=== PATIENT | female | born 1985 | race Caucasian/White ===

== ENCOUNTER 2016-11-24 13:40 | Emergency (ER) | payer OTHER ==
[~2016-11-24 13:40] MED LIST: Motrin PO; PRENTAB74 PO; tylenol PO
[2016-11-24 16:10] LABS: CONTROL LINE UCG INT CTR LINE PRESENT
[2016-11-24] MEDS ORDERED: ACETAMINOPHEN 325 MG TAB As Ordered ONE (17:29)
[2016-11-24 18:11] LABS: MEAN CORPUSCULAR HEMOGLOBIN 31.7 pg (27.0-33.0); MEAN CORPUSCULAR HGB CONC 35.2 g/dl (32.0-36.5); RED CELL DISTRIBUTION WIDTH 12.2 % (11.5-14.5); WHITE BLOOD COUNT 8.6 K/mm3 (4.0-10.0)
--- NOTE | 2016-11-24 18:31 | REP ---
Chest x-ray: Single PA view: History: Cough. Abdominal shielding was utilized this patient. Comparison chest x-ray: 05/26/2016. Findings: The lungs are symmetrically aerated and free of infiltrate. There is some tenting of the left hemidiaphragm. The infiltrate noted on the comparison chest x-ray has resolved. Heart size is normal. Pulmonary vasculature is not increased. Impression: Minimal fibrosis along the left hemidiaphragm. No active disease. Signed by Dandre Morales MD 11/24/2016 07:47 P
[2016-11-24 18:39] LABS: ANION GAP 8 MEQ/L (8-16); BLOOD UREA NITROGEN 12 MG/DL (7-18); CALCIUM LEVEL 8.9 MG/DL (8.5-10.1); CARBON DIOXIDE LEVEL 26 MEQ/L (21-32); CHLORIDE LEVEL 108 MEQ/L (98-107); CREATININE FOR GFR 0.64 MG/DL (0.55-1.02); GLOMERULAR FILTRATION RATE > 60.0 (>60); GLUCOSE, FASTING 94 MG/DL (70-105); HCG, SERUM QUANTITATIVE 2933 MIU/ML; POTASSIUM SERUM 3.7 MEQ/L (3.5-5.1); SODIUM LEVEL 142 MEQ/L (136-145)
--- NOTE | 2016-11-24 18:40 | REPUSA ---
Findings: There is intrauterine gestational sac noted which measures 7.5 x 4.1 x 7.7 mm. The mean sac size is 6.3 mm. Gestational age is 5 weeks 2 days. There is yolk sac noted. There is no definite erik e seen at this time. Recommend follow-up. There is trace free fluid in the cul-de-sac. Right ovary is 2.7 x 1.9 x 2.1 cm. The RI is 0.6. Left ovary 2.7 x 2.3 x 2.5 cm. the RI 0.59. Impression: 1. Intrauterine gestational sac present, corresponding to gestational age of 5 weeks 2 days. Yolk s ac is noted. At This time, no definite pole is seen. Recommend clinical correlation, correla tion beta-hCG and follow-up study as indicated.
--- NOTE | 2016-11-24 19:14 | EDDOCDS ---
Nurse's Notes [facility] Name: Tara Grijalva Age: 31 yrs Sex: Female : 1985 Arrival Date: 11/24/2016 Time: 13:40 Bed TR7 Private MD: No Pcp Diagnosis: Strain of muscle and tendon of front wall of thorax; related conditions, unspecified, first trimester;Acute bronchitis Presentation: 11/24 13:52 Presenting complaint: Patient states: c/o cough and congestion for two weeks. reports ead abdominal pain with cough, denies n/v. Risk factors: the patient reports no vaginal bleeding. Adult Sepsis Screening: The patient does not have new or worsening altered mentation. Patient's respiratory rate is less than 22. Adult Sepsis Screening: Systolic blood pressure is greater than 100. Patient has a qSOFA score of 0- Negative Sepsis Screen. Suicide/Homicide risk assessment- the patient denies having any suicidal and/or homicidal ideations and does not present with any other emotional, behavioral or mental health complaints. Status: Patient is not a guest service host or dependent. Transition of care: patient was not received from another setting of care. 13:52 Acuity: PREETI Level 3 ead 13:52 Method Of Arrival: Walkin/Carried/Asstd ead Triage Assessment: 13:54 General: Appears in no apparent distress, comfortable, well nourished, well groomed, ead Behavior is appropriate for age, cooperative. Pain: Location: chest Pain currently is 5 out of 10 on a pain scale. Aggravated by coughing and taking deep breaths. HIV screening NA for this visit Offered previously. Neurological: No deficits noted. Respiratory: Airway is patent Respiratory effort is even, unlabored, Reports cough that is productive. GI: Denies nausea, vomiting, pain. Derm: Skin is pink, warm & dry. 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 none - PMHx: none; - PSHx: none; - Social history: Smoking status: Patient states former smoker of tobacco. No barriers to communication noted, The patient speaks fluent [place], Speaks appropriately for age. - Family history: Not pertinent. - : The pt / caregiver states he / she is not on anticoagulants. Home medication list is obtained from the patient. - Exposure Risk Screening:: None identified. Screenin:06 Screening information is obtained from the patient. Fall risk: No risks identified. ms18 Assistance ADL's: requires no assistance with activities of daily living. Abuse/DV Screen: The patient / caregiver reports he/she is: not in a situation that causes fear, pain or injury. Nutritional screening: No deficits noted. Advance Directives: There is no living will. home support is adequate. Assessment: 19:06 General: Appears in no apparent distress, comfortable, Behavior is appropriate for age, ms18 cooperative. Pain: Denies pain. Neurological: Level of Consciousness is awake, alert, obeys commands, Oriented to person, place, time. Respiratory: Airway is patent Respiratory effort is even, unlabored. GI: Abdomen is flat, Bowel sounds present X 4 quads. Abd is soft X 4 quads. Derm: Skin is pink, warm & dry. normal. Vital Signs: 13:42 BP 144 / 72; Pulse 70; Resp 18 S; Temp 96.4(O); Pulse Ox 100% on R/A; Weight 70.31 kg gr2 (R); Height 5 ft. 5 in. (165.10 cm) (R); Pain 4/10; 15:46 BP 117 / 60; Pulse 60; Resp 20; Temp 99.1; Pulse Ox 100% on R/A; Pain 7/10; ar3 18:51 BP 119 / 81; Pulse 65; Resp 16; Temp 100.9(TE); Pulse Ox 98% on R/A; Pain 5/10; bnb 13:42 Body Mass Index 25.79 (70.31 kg, 165.10 cm) gr2 Vitals: 13:42 Log In Time: November 24, 2016 at 13:42. gr2 ED Course: 13:41 Patient visited by Serene Garcia. gr2 13:41 Patient moved to Waiting gr2 13:42 No Pcp is Private Physician. gr2 13:45 Patient visited by Serene Garcia. gr2 13:45 Patient visited by Seerne Garcia. gr2 13:45 Patient moved to Pre RCE gr2 13:53 Triage Initiated ead 15:53 UCG- In Lab Sent. ar3 15:54 Urine Culture Sent. ar3 15:54 UA Sent. ar3 17:06 Patient moved to Triage 3 ms18 17:08 Patient visited by Caitlin Hernandez RN. ms18 17:16 Dustin Medley PA is PHCP. mo1 17:16 Mechelle De La Garza MD is Attending Physician. mo1 17:21 Patient visited by Dustin Medley PA. mo1 17:39 BMP Sent. ms18 17:39 Complete Blood Count Sent. ms18 17:39 Hcg, Serum Quantitative Sent. ms18 17:39 Rh Only Sent. ms18 17:40 Patient moved to TR4 ms18 17:40 [facility] Payment Agreement was scanned into [employer] and attached to record. gjb 17:52 Patient moved to Ultrasound br3 18:11 Patient moved to TR4 br3 18:41 Patient moved to TR2 ms18 18:48 Patient moved to PR1 / 25 jc4 18:52 Patient visited by Jaja Bolden PCA. bnb 18:58 Chest, 1 View Returned. EDMS 18:58 US 1st trimester Returned. EDMS 19:06 Patient moved to TR7 bnb 19:06 The patient / caregiver is instructed regarding the plan of care and ED course. ms18 Accompanied by Significant Other. Property sent home with patient. :Personal belongings accompany Pt. 19:06 No IV's were initiated during this patient's visit. No procedures done that require ms18 assistance. Administered Medications: 17:31 Drug: Acetaminophen 975 mg [acetaminophen 325 mg tablet (3 tabs)] Route: PO; ms18 19:05 Follow up: Response: No Adverse Reaction ms18 Order Results: Lab Order: UA; SPEC'M 11/24/16 15:53 Test: APPEARANCE, URINE; Value: CLEAR; Range: CLEAR; Status: F Test: COLOR, URINE; Value: YELLOW; Range: YELLOW; Status: F Test: PH,URINE; Value: 6.0; Range: 5.0-9.0; Units: UNITS; Status: F Test: SPECIFIC GRAVITY URINE AUTO; Value: 1.023; Range: 1.002-1.035; Status: F Test: PROTEIN, URINE AUTO; Value: NEGATIVE; Range: NEGATIVE; Units: mg/dL; Status: F Test: GLUCOSE, URINE (UA) AUTO; Value: NEGATIVE; Range: NEGATIVE; Units: mg/dL; Status: F Test: KETONE, URINE AUTO; Value: 1+; Range: NEGATIVE; Abnormal: Above high normal; Units: mg/dL; Status: F Test: UROBILINOGEN, URINE AUTO; Value: 0.2; Range: 0.0-2.0; Units: mg/dL; Status: F Test: BILIRUBIN, URINE AUTO; Value: NEGATIVE; Range: NEGATIVE; Status: F Test: NITRITE, URINE AUTO; Value: NEGATIVE; Range: NEGATIVE; Status: F Test: LEUKOCYTE ESTERASE, URINE AUTO; Value: NEGATIVE; Range: NEGATIVE; Status: F Test: BLOOD, URINE BLOOD; Value: NEGATIVE; Range: NEGATIVE; Status: F Test: SPERM, URINE AUTO; Range: NONE; Status: I Test: WBC, URINE AUTO; Value: 1; Range: 0-3; Units: /HPF; Status: F Test: RBC, URINE AUTO; Value: 2; Range: 0-3; Units: /HPF; Status: F Test: BACTERIA, URINE AUTO; Value: 2+; Range: NEGATIVE; Abnormal: Above high normal; Status: F Test: SQUAMOUS EPITHELIAL CELL UR AU; Value: 1; Range: 0-6; Units: /HPF; Status: F Test: MUCUS, URINE; Value: SMALL; Range: NEGATIVE; Status: F Test: HYALINE CAST, URINE AUTO; Value: 0; Range: 0-1; Units: /LPF; Status: F Lab Order: UCG- In Lab; SPEC'M 11/24/16 15:53 Test: URINE PREG TEST; Value: POSITIVE; Range: NEGATIVE; Abnormal: Abnormal; Status: F Lab Order: Complete Blood Count; SPEC'M 11/24/16 17:40 Test: WHITE BLOOD COUNT; Value: 8.6; Range: 4.0-10.0; Units: K/mm3; Status: F Test: RED BLOOD COUNT; Value: 4.05; Range: 4.00-5.40; Units: M/mm3; Status: F Test: HEMOGLOBIN; Value: 12.8; Range: 12.0-16.0; Units: g/dl; Status: F Test: HEMATOCRIT; Value: 36.4; Range: 36.0-47.0; Units: %; Status: F Test: MEAN CORPUSCULAR VOLUME; Value: 90.0; Range: 80.0-96.0; Units: fl; Status: F Test: MEAN CORPUSCULAR HEMOGLOBIN; Value: 31.7; Range: 27.0-33.0; Units: pg; Status: F Test: MEAN CORPUSCULAR HGB CONC; Value: 35.2; Range: 32.0-36.5; Units: g/dl; Status: F Test: RED CELL DISTRIBUTION WIDTH; Value: 12.2; Range: 11.5-14.5; Units: %; Status: F Test: PLATELET COUNT, AUTOMATED; Value: 230; Range: 150-450; Units: k/mm3; Status: F Lab Order: Hcg, Serum Quantitative; SPEC11/24/16 17:40 Test: HCG, SERUM QUANTITATIVE; Value: 2933; Units: MIU/ML; Status: F Test Note: ; GESTATIONAL AGE APPROXIMATE HCG RANGE (MIU/ML) 0.2-1 WEEK 5-50 1-2 WEEKS 50-500 2-3 WEEKS 100-5,000 3-4 WEEKS 500-10,000 4-5 WEEKS 1,000-50,000 5-6 WEEKS 10,000-100,000 6-8 WEEKS 15,000-200,000 2-3 MONTHS 10,000-100,000 NON FEMALES LESS THAN 3.0 Patient samples may contain human heterophilic antibodies that could react with immunoassays to give falsely elevated or depressed results. This assay has been designed to minimize interference from heterophilic antibodies. Elevated hCG levels have also been associated with trophoblastic disease and nontrophoblastic neoplasms. The possibility of having these diseases should be considered before a diagnosis of is made. This test is not intended for use as a surrogate marker for aiding in the diagnosis or monitoring the treatment of cancer patients. [employer] methodology. Lab Order: Rh Only; SPEC11/24/16 17:40 Test: RH; Value: NEGATIVE; Status: F Lab Order: BMP; SPEC11/24/16 17:40 Test: GLUCOSE, FASTING; Value: 94; Range: 70-105; Units: MG/DL; Status: F Test: BLOOD UREA NITROGEN; Value: 12; Range: 7-18; Units: MG/DL; Status: F Test: CREATININE FOR GFR; Value: 0.64; Range: 0.55-1.02; Units: MG/DL; Status: F Test: GLOMERULAR FILTRATION RATE; Value: > 60.0; Range: >60; Status: F Test: SODIUM LEVEL; Value: 142; Range: 136-145; Units: MEQ/L; Status: F Test: POTASSIUM SERUM; Value: 3.7; Range: 3.5-5.1; Units: MEQ/L; Status: F Test: CHLORIDE LEVEL; Value: 108; Range: 98-107; Abnormal: Above high normal; Units: MEQ/L; Status: F Test: CARBON DIOXIDE LEVEL; Value: 26; Range: 21-32; Units: MEQ/L; Status: F Test: ANION GAP; Value: 8; Range: 8-16; Units: MEQ/L; Status: F Test: CALCIUM LEVEL; Value: 8.9; Range: 8.5-10.1; Units: MG/DL; Status: F Test Note: ; Units are mL/min/1.73 m2 Chronic Kidney Disease Staging per NKF: Stage I & II GFR >=60 Normal to Mildly Decreased Stage III GFR 30-59 Moderately Decreased Stage IV GFR 15-29 Severely Decreased Stage V GFR <15 Very Little GFR Left ESRD GFR <15 on ANTHROPOLOGIST PHYSICAL 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 The mean sac size is; 6.3 mm. Gestational age is 5 weeks 2 days. There is yolk sac noted. There is no definite erik; e seen at this time. Recommend follow-up.; ; There is trace free fluid in the cul-de-sac. Right ovary is 2.7 x 1.9 x 2.1 cm. The RI is 0.6.; Left ovary 2.7 x 2.3 x 2.5 cm. the RI 0.59.; Impression:; 1. Intrauterine gestational sac present, corresponding to gestational age of 5 weeks 2 days. Yolk s; ac is noted. At This time, no definite pole is seen. Recommend clinical correlation, correla; tion beta-hCG and follow-up study as indicated.; ; Radiology Order: Chest, 1 View Test: Chest, 1 View REASON FOR EXAMINATION: Cough; Chest x-ray: Single PA view:; ; History: Cough. Abdominal shielding was utilized this patient.; ; Comparison chest x-ray: 05/26/2016.; ; Findings: The lungs are symmetrically aerated and free of infiltrate. There is; some tenting of the left hemidiaphragm. The infiltrate noted on the comparison; chest x-ray has resolved. Heart size is normal. Pulmonary vasculature is not; increased.; ; Impression:; ; Minimal fibrosis along the left hemidiaphragm. No active disease.; ; ; ; ; Unreviewed; Outcome: 19:00 Discharge ordered by Provider. mo1 19:06 Discharge Assessment: Patient awake, alert and oriented x 3. No cognitive and/or ms18 functional deficits noted. Patient verbalized understanding of disposition instructions. patient administered narcotics - no. The following High Risk Discharge criteria are identified: None. Discharged to home ambulatory. Condition: good Condition: stable Condition: improved. Discharge instructions given to patient, Instructed on discharge instructions, follow up and referral plans. medication usage, Demonstrated understanding of instructions, medications, Pt was receptive of discharge instructions/ teaching. Ultrasound Study completed. 19:14 Patient left the ED. ms18 Signatures: Dispatcher [employer] EDMS Gewn Garcia br3 Buffy Mishra, STRATEGIC PLANNING DIRECTOR STRATEGIC PLANNING DIRECTOR ar3 Ashli Díaz RN RN jc4 Serene Garcia gr2 Dustin Medley PA PA mo1 Monica López RN RN ead Smith, Mallory, RN RN ms18 Lorna Pope Brittney, STRATEGIC PLANNING DIRECTOR STRATEGIC PLANNING DIRECTOR bnb Corrections: (The following items were deleted from the chart) 13:45 13:42 RN notified that patient meets Red Flag criteria. gr2 gr2 MTDD
--- NOTE | 2016-11-24 19:14 | EDDOCDS ---
Physician Documentation [facility] Name: Tara Grijalva Age: 31 yrs Sex: Female : 1985 Arrival Date: 11/24/2016 Time: 13:40 Bed TR7 Private MD: No Pcp Disposition: 11/24/16 19:00 Discharged to Home/Self Care. Impression: Strain of muscle and tendon of front wall of thorax, related conditions, unspecified, first trimester, Acute bronchitis. - Condition is Stable. - Discharge Instructions: First Trimester of , Acute Bronchitis, Muscle Strain. - Medication Reconciliation, Local Pharmacy Hours form. - Follow up: Private Physician; When: Call to arrange an appointment; Reason: Recheck today's complaints, Continuance of care. - Problem is new. - Symptoms are unchanged. Historical: - Allergies: no known allergies; - Home Meds: 1. none - PMHx: none; - PSHx: none; - Social history: Smoking status: Patient states former smoker of tobacco. No barriers to communication noted, The patient speaks fluent Romansh, Speaks appropriately for age. - Family history: Not pertinent. - : The pt / caregiver states he / she is not on anticoagulants. Home medication list is obtained from the patient. - Exposure Risk Screening:: None identified. 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 5 in. (165.10 cm) (R); Pain 4/10; 15:46 BP 117 / 60; Pulse 60; Resp 20; Temp 99.1; Pulse Ox 100% on R/A; Pain 7/10; ar3 18:51 BP 119 / 81; Pulse 65; Resp 16; Temp 100.9(TE); Pulse Ox 98% on R/A; Pain 5/10; bnb 13:42 Body Mass Index 25.79 (70.31 kg, 165.10 cm) gr2 MDM: 15:49 UA Ordered. EDMS 15:49 Urine Culture Ordered. EDMS 15:49 UCG- In Lab Ordered. EDMS 17:20 UA Reviewed. mo1 17:21 UCG- In Lab Reviewed. mo1 17:28 Undress patient appropriately for examination ordered. mo1 17:28 Acetaminophen Tablet 975 mg PO once ordered. mo1 17:29 US 1st trimester Ordered. EDMS 17:29 Complete Blood Count Ordered. EDMS 17:29 Hcg, Serum Quantitative Ordered. EDMS 17:29 Rh Only Ordered. EDMS 17:29 BMP Ordered. EDMS 17:29 Chest, 1 View Ordered. EDMS 17:39 Financial registration complete. gjb 17:40 [facility] Payment Agreement was scanned into [employer] and attached to record. gjb 18:14 TRANSVAGINAL US Ordered. EDMS 18:14 DUPLEX SCAN LIMITED (DOPPLER) Ordered. EDMS 18:39 Complete Blood Count Reviewed. mo1 18:39 Rh Only Reviewed. mo1 18:40 BMP Reviewed. mo1 18:40 Hcg, Serum Quantitative Reviewed. mo1 Administered Medications: 17:31 Drug: Acetaminophen 975 mg [acetaminophen 325 mg tablet (3 tabs)] Route: PO; ms18 19:05 Follow up: Response: No Adverse Reaction ms18 Signatures: Dispatcher [employer] EDMS Dustin Medley PA PA mo1 Monica LópezRN RN Caitlin Laird RN RN ms18 Lorna Pope The chart was reviewed and I authenticate all verbal orders and agree with the evaluation and treatment provided.Attachments: 17:40 [facility] Payment Agreement gjb MTDD
--- NOTE | 2016-11-26 20:14 | EDDOCDS ---
Nurse's Notes [facility] Name: Tara Grijalva Age: 31 yrs Sex: Female : 1985 Arrival Date: 11/24/2016 Time: 13:40 Bed TR7 Private MD: No Pcp Diagnosis: Strain of muscle and tendon of front wall of thorax; related conditions, unspecified, first trimester;Acute bronchitis Presentation: 11/24 13:52 Presenting complaint: Patient states: c/o cough and congestion for two weeks. reports ead abdominal pain with cough, denies n/v. Risk factors: the patient reports no vaginal bleeding. Adult Sepsis Screening: The patient does not have new or worsening altered mentation. Patient's respiratory rate is less than 22. Adult Sepsis Screening: Systolic blood pressure is greater than 100. Patient has a qSOFA score of 0- Negative Sepsis Screen. Suicide/Homicide risk assessment- the patient denies having any suicidal and/or homicidal ideations and does not present with any other emotional, behavioral or mental health complaints. Status: Patient is not a academic services coordinator or dependent. Transition of care: patient was not received from another setting of care. 13:52 Acuity: PREETI Level 3 ead 13:52 Method Of Arrival: Walkin/Carried/Asstd ead Triage Assessment: 13:54 General: Appears in no apparent distress, comfortable, well nourished, well groomed, ead Behavior is appropriate for age, cooperative. Pain: Location: chest Pain currently is 5 out of 10 on a pain scale. Aggravated by coughing and taking deep breaths. HIV screening NA for this visit Offered previously. Neurological: No deficits noted. Respiratory: Airway is patent Respiratory effort is even, unlabored, Reports cough that is productive. GI: Denies nausea, vomiting, pain. Derm: Skin is pink, warm & dry. 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 none - PMHx: none; - PSHx: none; - Social history: Smoking status: Patient states former smoker of tobacco. No barriers to communication noted, The patient speaks fluent Hong Konger, Speaks appropriately for age. - Family history: Not pertinent. - : The pt / caregiver states he / she is not on anticoagulants. Home medication list is obtained from the patient. - Exposure Risk Screening:: None identified. Screenin:06 Screening information is obtained from the patient. Fall risk: No risks identified. ms18 Assistance ADL's: requires no assistance with activities of daily living. Abuse/DV Screen: The patient / caregiver reports he/she is: not in a situation that causes fear, pain or injury. Nutritional screening: No deficits noted. Advance Directives: There is no living will. home support is adequate. Assessment: 19:06 General: Appears in no apparent distress, comfortable, Behavior is appropriate for age, ms18 cooperative. Pain: Denies pain. Neurological: Level of Consciousness is awake, alert, obeys commands, Oriented to person, place, time. Respiratory: Airway is patent Respiratory effort is even, unlabored. GI: Abdomen is flat, Bowel sounds present X 4 quads. Abd is soft X 4 quads. Derm: Skin is pink, warm & dry. normal. Vital Signs: 13:42 BP 144 / 72; Pulse 70; Resp 18 S; Temp 96.4(O); Pulse Ox 100% on R/A; Weight 70.31 kg gr2 (R); Height 5 ft. 5 in. (165.10 cm) (R); Pain 4/10; 15:46 BP 117 / 60; Pulse 60; Resp 20; Temp 99.1; Pulse Ox 100% on R/A; Pain 7/10; ar3 18:51 BP 119 / 81; Pulse 65; Resp 16; Temp 100.9(TE); Pulse Ox 98% on R/A; Pain 5/10; bnb 13:42 Body Mass Index 25.79 (70.31 kg, 165.10 cm) gr2 Vitals: 13:42 Log In Time: November 24, 2016 at 13:42. gr2 ED Course: 13:41 Patient visited by Serene Garcia. gr2 13:41 Patient moved to Waiting gr2 13:42 No Pcp is Private Physician. gr2 13:45 Patient visited by Serene Garcia. gr2 13:45 Patient visited by Serene Garcia. gr2 13:45 Patient moved to Pre RCE gr2 13:53 Triage Initiated ead 15:53 UCG- In Lab Sent. ar3 15:54 Urine Culture Sent. ar3 15:54 UA Sent. ar3 17:06 Patient moved to Triage 3 ms18 17:08 Patient visited by Caitlin Hernandez RN. ms18 17:16 Dustin Medley PA is PHCP. mo1 17:16 Mechelle De La Garza MD is Attending Physician. mo1 17:21 Patient visited by Dustin Medley PA. mo1 17:39 BMP Sent. ms18 17:39 Complete Blood Count Sent. ms18 17:39 Hcg, Serum Quantitative Sent. ms18 17:39 Rh Only Sent. ms18 17:40 Patient moved to TR4 ms18 17:40 [facility] [place] into [employer] and attached to record. gjb 17:52 Patient moved to Ultrasound br3 18:11 Patient moved to TR4 br3 18:41 Patient moved to TR2 ms18 18:48 Patient moved to PR1 / 25 jc4 18:52 Patient visited by Jaja Bolden PCA. bnb 18:58 Chest, 1 View Returned. EDMS 18:58 US 1st trimester Returned. EDMS 19:06 Patient moved to TR7 bnb 19:06 The patient / caregiver is instructed regarding the plan of care and ED course. ms18 Accompanied by Significant Other. Property sent home with patient. :Personal belongings accompany Pt. 19:06 No IV's were initiated during this patient's visit. No procedures done that require ms18 assistance. 11/25 09:18 T-Sheet-- Draft Copy was scanned into [employer] and attached to record. gb 09:18 Radiology Report was scanned into [employer] and attached to record. gb Administered Medications: 11/24 17:31 Drug: Acetaminophen 975 mg [acetaminophen 325 mg tablet (3 tabs)] Route: PO; ms18 19:05 Follow up: Response: No Adverse Reaction ms18 Order Results: Lab Order: UA; SPEC'M 11/24/16 15:53 Test: APPEARANCE, URINE; Value: CLEAR; Range: CLEAR; Status: F Test: COLOR, URINE; Value: YELLOW; Range: YELLOW; Status: F Test: PH,URINE; Value: 6.0; Range: 5.0-9.0; Units: UNITS; Status: F Test: SPECIFIC GRAVITY URINE AUTO; Value: 1.023; Range: 1.002-1.035; Status: F Test: PROTEIN, URINE AUTO; Value: NEGATIVE; Range: NEGATIVE; Units: mg/dL; Status: F Test: GLUCOSE, URINE (UA) AUTO; Value: NEGATIVE; Range: NEGATIVE; Units: mg/dL; Status: F Test: KETONE, URINE AUTO; Value: 1+; Range: NEGATIVE; Abnormal: Above high normal; Units: mg/dL; Status: F Test: UROBILINOGEN, URINE AUTO; Value: 0.2; Range: 0.0-2.0; Units: mg/dL; Status: F Test: BILIRUBIN, URINE AUTO; Value: NEGATIVE; Range: NEGATIVE; Status: F Test: NITRITE, URINE AUTO; Value: NEGATIVE; Range: NEGATIVE; Status: F Test: LEUKOCYTE ESTERASE, URINE AUTO; Value: NEGATIVE; Range: NEGATIVE; Status: F Test: BLOOD, URINE BLOOD; Value: NEGATIVE; Range: NEGATIVE; Status: F Test: SPERM, URINE AUTO; Range: NONE; Status: I Test: WBC, URINE AUTO; Value: 1; Range: 0-3; Units: /HPF; Status: F Test: RBC, URINE AUTO; Value: 2; Range: 0-3; Units: /HPF; Status: F Test: BACTERIA, URINE AUTO; Value: 2+; Range: NEGATIVE; Abnormal: Above high normal; Status: F Test: SQUAMOUS EPITHELIAL CELL UR AU; Value: 1; Range: 0-6; Units: /HPF; Status: F Test: MUCUS, URINE; Value: SMALL; Range: NEGATIVE; Status: F Test: HYALINE CAST, URINE AUTO; Value: 0; Range: 0-1; Units: /LPF; Status: F Lab Order: Urine Culture; SPEC'M 11/24/16 15:53 Test: URINE CULTURE; Value: ORGANISM 1: KLEBSIELLA PNEUMONIAE; Status: F Test: URINE CULTURE; Value: KLEBSIELLA PNEUMONIAE; Status: F Test: URINE CULTURE; Value: COLONY COUNT CFU/ml >100,000; Status: F Test: URINE CULTURE; Value: GRAM NEG SENSI - VITEK 80; Status: F Test: URINE CULTURE; Value: Method: VIT2; Status: F Test: URINE CULTURE; Value: EXTD BRD SPCTRM BETA LACTAMASE -; Status: F Test: URINE CULTURE; Value: TRIMETHOPRIM/SULFAMETHOXAZOLE <=20 S; Status: F Test: URINE CULTURE; Value: AMPICILLIN >=32 R; Status: F Test: URINE CULTURE; Value: GENTAMICIN <=1 S; Status: F Test: URINE CULTURE; Value: NITROFURANTOIN 32 S; Status: F Test: URINE CULTURE; Value: CEFAZOLIN <=4 S; Status: F Test: URINE CULTURE; Value: LEVOFLOXACIN <=0.12 S; Status: F Test: URINE CULTURE; Value: TOBRAMYCIN <=1 S; Status: F Test: URINE CULTURE; Value: CEFTRIAXONE <=1 S; Status: F Test: URINE CULTURE; Value: CEFTAZIDIME <=1 S; Status: F Test: URINE CULTURE; Value: AMPICILLIN/SULBACTAM 16 I; Status: F Test: URINE CULTURE; Value: PIPERACILLIN/TAZOBACTAM <=4 S; Status: F Test: URINE CULTURE; Value: AZTREONAM <=1 S; Status: F Test: URINE CULTURE; Value: ERTAPENEM <=0.5 S; Status: F Test: URINE CULTURE; Value: MEROPENEM <=0.25 S; Status: F Test: URINE CULTURE; Value: TIGECYCLINE <=0.5 S; Status: F Test: URINE CULTURE; Value: CEFEPIME <=1 S; Status: F Lab Order: UCG- In Lab; SPEC'M 11/24/16 15:53 Test: URINE PREG TEST; Value: POSITIVE; Range: NEGATIVE; Abnormal: Abnormal; Status: F Lab Order: Complete Blood Count; SPEC'M 11/24/16 17:40 Test: WHITE BLOOD COUNT; Value: 8.6; Range: 4.0-10.0; Units: K/mm3; Status: F Test: RED BLOOD COUNT; Value: 4.05; Range: 4.00-5.40; Units: M/mm3; Status: F Test: HEMOGLOBIN; Value: 12.8; Range: 12.0-16.0; Units: g/dl; Status: F Test: HEMATOCRIT; Value: 36.4; Range: 36.0-47.0; Units: %; Status: F Test: MEAN CORPUSCULAR VOLUME; Value: 90.0; Range: 80.0-96.0; Units: fl; Status: F Test: MEAN CORPUSCULAR HEMOGLOBIN; Value: 31.7; Range: 27.0-33.0; Units: pg; Status: F Test: MEAN CORPUSCULAR HGB CONC; Value: 35.2; Range: 32.0-36.5; Units: g/dl; Status: F Test: RED CELL DISTRIBUTION WIDTH; Value: 12.2; Range: 11.5-14.5; Units: %; Status: F Test: PLATELET COUNT, AUTOMATED; Value: 230; Range: 150-450; Units: k/mm3; Status: F Lab Order: Hcg, Serum Quantitative; SPEC'11/24/16 17:40 Test: HCG, SERUM QUANTITATIVE; Value: 2933; Units: MIU/ML; Status: F Test Note: ; GESTATIONAL AGE APPROXIMATE HCG RANGE (MIU/ML) 0.2-1 WEEK 5-50 1-2 WEEKS 50-500 2-3 WEEKS 100-5,000 3-4 WEEKS 500-10,000 4-5 WEEKS 1,000-50,000 5-6 WEEKS 10,000-100,000 6-8 WEEKS 15,000-200,000 2-3 MONTHS 10,000-100,000 NON FEMALES LESS THAN 3.0 Patient samples may contain human heterophilic antibodies that could react with immunoassays to give falsely elevated or depressed results. This assay has been designed to minimize interference from heterophilic antibodies. Elevated hCG levels have also been associated with trophoblastic disease and nontrophoblastic neoplasms. The possibility of having these diseases should be considered before a diagnosis of is made. This test is not intended for use as a surrogate marker for aiding in the diagnosis or monitoring the treatment of cancer patients. Siemens Dissolve methodology. Lab Order: Rh Only; SPEC'11/24/16 17:40 Test: RH; Value: NEGATIVE; Status: F Lab Order: BMP; SPEC'11/24/16 17:40 Test: GLUCOSE, FASTING; Value: 94; Range: 70-105; Units: MG/DL; Status: F Test: BLOOD UREA NITROGEN; Value: 12; Range: 7-18; Units: MG/DL; Status: F Test: CREATININE FOR GFR; Value: 0.64; Range: 0.55-1.02; Units: MG/DL; Status: F Test: GLOMERULAR FILTRATION RATE; Value: > 60.0; Range: >60; Status: F Test: SODIUM LEVEL; Value: 142; Range: 136-145; Units: MEQ/L; Status: F Test: POTASSIUM SERUM; Value: 3.7; Range: 3.5-5.1; Units: MEQ/L; Status: F Test: CHLORIDE LEVEL; Value: 108; Range: 98-107; Abnormal: Above high normal; Units: MEQ/L; Status: F Test: CARBON DIOXIDE LEVEL; Value: 26; Range: 21-32; Units: MEQ/L; Status: F Test: ANION GAP; Value: 8; Range: 8-16; Units: MEQ/L; Status: F Test: CALCIUM LEVEL; Value: 8.9; Range: 8.5-10.1; Units: MG/DL; Status: F Test Note: ; Units are mL/min/1.73 m2 Chronic Kidney Disease Staging per NKF: Stage I & II GFR >=60 Normal to Mildly Decreased Stage III GFR 30-59 Moderately Decreased Stage IV GFR 15-29 Severely Decreased Stage V GFR <15 Very Little GFR Left ESRD GFR <15 on 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 The mean sac size is; 6.3 mm. Gestational age is 5 weeks 2 days. There is yolk sac noted. There is no definite erik; e seen at this time. Recommend follow-up.; ; There is trace free fluid in the cul-de-sac. Right ovary is 2.7 x 1.9 x 2.1 cm. The RI is 0.6.; Left ovary 2.7 x 2.3 x 2.5 cm. the RI 0.59.; Impression:; 1. Intrauterine gestational sac present, corresponding to gestational age of 5 weeks 2 days. Yolk s; ac is noted. At This time, no definite pole is seen. Recommend clinical correlation, correla; tion beta-hCG and follow-up study as indicated.; ; Radiology Order: Chest, 1 View Test: Chest, 1 View REASON FOR EXAMINATION: Cough; Chest x-ray: Single PA view:; ; History: Cough. Abdominal shielding was utilized this patient.; ; Comparison chest x-ray: 05/26/2016.; ; Findings: The lungs are symmetrically aerated and free of infiltrate. There is; some tenting of the left hemidiaphragm. The infiltrate noted on the comparison; chest x-ray has resolved. Heart size is normal. Pulmonary vasculature is not; increased.; ; Impression:; ; Minimal fibrosis along the left hemidiaphragm. No active disease.; ; ; Signed by; Dandre Morales MD 11/24/2016 07:47 P; Outcome: 19:00 Discharge ordered by Provider. mo1 19:06 Discharge Assessment: Patient awake, alert and oriented x 3. No cognitive and/or ms18 functional deficits noted. Patient verbalized understanding of disposition instructions. patient administered narcotics - no. The following High Risk Discharge criteria are identified: None. Discharged to home ambulatory. Condition: good Condition: stable Condition: improved. Discharge instructions given to patient, Instructed on discharge instructions, follow up and referral plans. medication usage, Demonstrated understanding of instructions, medications, Pt was receptive of discharge instructions/ teaching. Ultrasound Study completed. 19:14 Patient left the ED. ms18 Signatures: Dispatcher [employer] EDMS Binta Parks, Reg Reg gb Gwen Garcia br3 Buffy Mishra, BILL CLERK BILL CLERK ar3 Ashli Díaz RN RN jc4 Serene Garcia gr2 Dustin Medley PA PA mo1 Monica López RN RN ead Smith, Mallory, RN RN ms18 Lorna Pope Brittney, BILL CLERK BILL CLERK bnb Corrections: (The following items were deleted from the chart) 13:45 13:42 RN notified that patient meets Red Flag criteria. gr2 gr2 Chart Complete MTDD
--- NOTE | 2016-11-26 20:14 | EDDOCDS ---
Physician Documentation [facility] Name: Tara Grijalva Age: 31 yrs Sex: Female : 1985 Arrival Date: 11/24/2016 Time: 13:40 Bed TR7 Private MD: No Pcp Disposition: 11/24/16 19:00 Discharged to Home/Self Care. Impression: Strain of muscle and tendon of front wall of thorax, related conditions, unspecified, first trimester, Acute bronchitis. - Condition is Stable. - Discharge Instructions: First Trimester of , Acute Bronchitis, Muscle Strain. - Medication Reconciliation, Local Pharmacy Hours form. - Follow up: Private Physician; When: Call to arrange an appointment; Reason: Recheck today's complaints, Continuance of care. - Problem is new. - Symptoms are unchanged. Historical: - Allergies: no known allergies; - Home Meds: 1. none - PMHx: none; - PSHx: none; - Social history: Smoking status: Patient states former smoker of tobacco. No barriers to communication noted, The patient speaks fluent Icelandic, Speaks appropriately for age. - Family history: Not pertinent. - : The pt / caregiver states he / she is not on anticoagulants. Home medication list is obtained from the patient. - Exposure Risk Screening:: None identified. 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 5 in. (165.10 cm) (R); Pain 4/10; 15:46 BP 117 / 60; Pulse 60; Resp 20; Temp 99.1; Pulse Ox 100% on R/A; Pain 7/10; ar3 18:51 BP 119 / 81; Pulse 65; Resp 16; Temp 100.9(TE); Pulse Ox 98% on R/A; Pain 5/10; bnb 13:42 Body Mass Index 25.79 (70.31 kg, 165.10 cm) gr2 MDM: 15:49 UA Ordered. EDMS 15:49 Urine Culture Ordered. EDMS 15:49 UCG- In Lab Ordered. EDMS 17:20 UA Reviewed. mo1 17:21 UCG- In Lab Reviewed. mo1 17:28 Undress patient appropriately for examination ordered. mo1 17:28 Acetaminophen Tablet 975 mg PO once ordered. mo1 17:29 US 1st trimester Ordered. EDMS 17:29 Complete Blood Count Ordered. EDMS 17:29 Hcg, Serum Quantitative Ordered. EDMS 17:29 Rh Only Ordered. EDMS 17:29 BMP Ordered. EDMS 17:29 Chest, 1 View Ordered. EDMS 17:39 Financial registration complete. gjb 17:40 [facility] Payment Agreement was scanned into [employer] and attached to record. gjb 18:14 TRANSVAGINAL US Ordered. EDMS 18:14 DUPLEX SCAN LIMITED (DOPPLER) Ordered. EDMS 18:39 Complete Blood Count Reviewed. mo1 18:39 Rh Only Reviewed. mo1 18:40 BMP Reviewed. mo1 18:40 Hcg, Serum Quantitative Reviewed. mo1 11/25 09:18 T-Sheet-- Draft Copy was scanned into [employer] and attached to record. gb 09:18 Radiology Report was scanned into [employer] and attached to record. gb Administered Medications: 11/24 17:31 Drug: Acetaminophen 975 mg [acetaminophen 325 mg tablet (3 tabs)] Route: PO; ms18 19:05 Follow up: Response: No Adverse Reaction ms18 Signatures: Dispatcher [employer] EDMS Binta Parks, Reg Reg gb Dustin Medley PA PA mo1 Monica LópezRN RN Caitlin Laird RN RN ms18 Lorna Pope The chart was reviewed and I authenticate all verbal orders and agree with the evaluation and treatment provided.Attachments: 17:40 [facility] Payment Agreement gjb 11/25 09:18 T-Sheet-- Draft Copy gb Chart Complete MTDD
--- NOTE | 2016-11-26 20:14 | EDDOCDS ---
Physician Documentation [facility] Name: Tara Grijalva Age: 31 yrs Sex: Female : 1985 Arrival Date: 11/24/2016 Time: 13:40 Bed TR7 Private MD: No Pcp Disposition: 11/24/16 19:00 Discharged to Home/Self Care. Impression: Strain of muscle and tendon of front wall of thorax, related conditions, unspecified, first trimester, Acute bronchitis. - Condition is Stable. - Discharge Instructions: First Trimester of , Acute Bronchitis, Muscle Strain. - Medication Reconciliation, Local Pharmacy Hours form. - Follow up: Private Physician; When: Call to arrange an appointment; Reason: Recheck today's complaints, Continuance of care. - Problem is new. - Symptoms are unchanged. Historical: - Allergies: no known allergies; - Home Meds: 1. none - PMHx: none; - PSHx: none; - Social history: Smoking status: Patient states former smoker of tobacco. No barriers to communication noted, The patient speaks fluent Vietnamese, Speaks appropriately for age. - Family history: Not pertinent. - : The pt / caregiver states he / she is not on anticoagulants. Home medication list is obtained from the patient. - Exposure Risk Screening:: None identified. 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 5 in. (165.10 cm) (R); Pain 4/10; 15:46 BP 117 / 60; Pulse 60; Resp 20; Temp 99.1; Pulse Ox 100% on R/A; Pain 7/10; ar3 18:51 BP 119 / 81; Pulse 65; Resp 16; Temp 100.9(TE); Pulse Ox 98% on R/A; Pain 5/10; bnb 13:42 Body Mass Index 25.79 (70.31 kg, 165.10 cm) gr2 MDM: 15:49 UA Ordered. EDMS 15:49 Urine Culture Ordered. EDMS 15:49 UCG- In Lab Ordered. EDMS 17:20 UA Reviewed. mo1 17:21 UCG- In Lab Reviewed. mo1 17:28 Undress patient appropriately for examination ordered. mo1 17:28 Acetaminophen Tablet 975 mg PO once ordered. mo1 17:29 US 1st trimester Ordered. EDMS 17:29 Complete Blood Count Ordered. EDMS 17:29 Hcg, Serum Quantitative Ordered. EDMS 17:29 Rh Only Ordered. EDMS 17:29 BMP Ordered. EDMS 17:29 Chest, 1 View Ordered. EDMS 17:39 Financial registration complete. gjb 17:40 [facility] Payment Agreement was scanned into [employer] and attached to record. gjb 18:14 TRANSVAGINAL US Ordered. EDMS 18:14 DUPLEX SCAN LIMITED (DOPPLER) Ordered. EDMS 18:39 Complete Blood Count Reviewed. mo1 18:39 Rh Only Reviewed. mo1 18:40 BMP Reviewed. mo1 18:40 Hcg, Serum Quantitative Reviewed. mo1 11/25 09:18 T-Sheet-- Draft Copy was scanned into [employer] and attached to record. gb 09:18 Radiology Report was scanned into [employer] and attached to record. gb Administered Medications: 11/24 17:31 Drug: Acetaminophen 975 mg [acetaminophen 325 mg tablet (3 tabs)] Route: PO; ms18 19:05 Follow up: Response: No Adverse Reaction ms18 Signatures: Dispatcher [employer] EDMS Binta Parks, Reg Reg gb Dustin Medley PA PA mo1 Monica LópezRN RN Caitlin Laird RN RN ms18 Lorna Pope The chart was reviewed and I authenticate all verbal orders and agree with the evaluation and treatment provided.Attachments: 17:40 [facility] Payment Agreement gjb 11/25 09:18 T-Sheet-- Draft Copy gb Chart Complete MTDD
== END 2016-11-24 19:14 | disposition home or self-care (01) ==
LOC: M ED 13:40
DX: O99.89 Other specified diseases and conditions complicating pregnancy, childbirth and the puerperium (principal); J20.9 Acute bronchitis, unspecified; R10.9 Unspecified abdominal pain; Z87.891 Personal history of nicotine dependence; Z3A.00 Weeks of gestation of pregnancy not specified

== ENCOUNTER → 2017-03-11 | Outpatient (CLI) | payer MEDICAID ==
--- NOTE | 2017-03-11 15:16 | REP ---
OB ULTRASOUND: HISTORY: Supervision of other normal . Multiple ultrasonographic images of the gravid uterus show a single living intrauterine gestation in the cephalic presentation. Doppler interrogation of the heart shows a heart rate of 157 beats per minute. The placenta is posterior and low lying seen 1 cm from the internal os. The subjective amniotic fluid volume is within normal limits. The cervix measures 5.4 cm in length and is closed. Evaluation of the maternal adnexal spaces showed no abnormalities. BPD 5.0 cm = 21 weeks 1 day HC 19.3 cm = 21 weeks 4 days AC 15.8 cm = 21 weeks 0 day FL 3.3 cm = 20 weeks 3 days The estimated weight is 377 grams, which is at the 72nd percentile for 20 week 1 day gestational age. anatomical screen shows the following structures to be within normal limits: Thalami, cavum septum pellucidum, cerebellum, cisterna magna, spine, kidneys, urinary bladder, three vessel umbilical cord, cord insertion, stomach, upper and lower extremities, and ventricular outflow tracts. Limited evaluation of the facial features and four chamber heart was noted. IMPRESSION: Single living intrauterine gestation as described above with an estimated gestational age of 20 weeks 6 days via composite criteria and an estimated date of delivery of 07/23/2017 by today's exam. No anomalies were detected, however, I recommend a followup examination to better visualize the facial features and four chamber heart. In addition, a followup is necessary to ensure abatement of the low lying placenta. Signed by Avery Bright DO 03/11/2017 04:14 P
== END ==
LOC: M RAD 10:59
PROVIDERS: ATTEND Obstetrics & Gynecology
DX: Z36 Encounter for antenatal screening of mother (principal); Z3A.20 20 weeks gestation of pregnancy

== ENCOUNTER → 2017-04-08 | Outpatient (CLI) | payer MEDICAID ==
[2017-04-08 13:26] LABS: MEAN CORPUSCULAR HEMOGLOBIN 32.2 pg (27.0-33.0); MEAN CORPUSCULAR HGB CONC 34.6 g/dl (32.0-36.5); MEAN CORPUSCULAR VOLUME 93.1 fl (80.0-96.0); RED CELL DISTRIBUTION WIDTH 13.3 % (11.5-14.5)
[2017-04-09 10:22] LABS: WHITE BLOOD COUNT 8.3 K/mm3 (4.0-10.0)
== END ==
LOC: M LAB 11:31
PROVIDERS: ATTEND Obstetrics & Gynecology
DX: Z34.82 Encounter for supervision of other normal pregnancy, second trimester (principal)

== ENCOUNTER → 2017-04-23 | Outpatient (REF) | payer OTHER | LOC: M LAB REF 16:42 | PROVIDERS: ATTEND Obstetrics & Gynecology | DX: Z34.82 Encounter for supervision of other normal pregnancy, second trimester (principal) ==

== ENCOUNTER → 2017-05-06 | Outpatient (CLI) | payer OTHER ==
[~2017-05-06] MED LIST changes: +ACET50TA PO; +ADVI200C5 PO; +MACR100C43 PO; +PRENCHW PO; +PRENTAB55 PO; +ZOFR4TAB3 PO
--- NOTE | 2017-05-06 11:39 | REP ---
Clinical: Anatomical evaluation. Comparison: 03/11/2017 . Findings: Examination demonstrates a single live intrauterine in cephalic presentation. motion is identified by technologist. Placenta is noted posteriorly and grade one without evidence for placenta previa or abruption. Amniotic fluid volume is normal. Cervix measures 3.9 cm in length and appears closed. No evidence for nuchal cord. Gestational age by LMP 28 weeks 1 day with MONIQUE 07/28/1968 . Gestational age by current measurements in 28 weeks 3 days with MONIQUE 07/26/2017 . FHR equals 144 beats per minute. BPD 7.3 cm 29 weeks 2 days HC 25.7 cm 27 weeks 6 days AC 24.1 cm 28 weeks 3 days FL 5.8 cm 28 weeks 1 day HL 4.8 cm 28 weeks 2 days HC/AC ratio 1.07 Estimated weight 1205 grams ( 47th percentile). Anatomical assessment demonstrates normal structures including facial features, diaphragm, stomach, cord insertion/three-vessel cord, kidneys. Impression: 1. Single live intrauterine in cephalic presentation demonstrating appropriate interval growth. 2. In conjunction with prior examination anatomical assessment is complete and normal. 3. Posterior placenta without placenta previa with tip approximately 4 cm from the closed internal os. Signed by Pranav Caraballo MD 05/06/2017 11:30 A
== END ==
LOC: M RAD 10:39
PROVIDERS: ATTEND Obstetrics & Gynecology
DX: Z36 Encounter for antenatal screening of mother (principal); Z3A.28 28 weeks gestation of pregnancy

== ENCOUNTER 2017-06-01 02:07 | Outpatient (CLI) | payer OTHER ==
[~2017-06-01] VITALS: Ht 165.1 cm; Wt 84.0 kg
[~2017-06-01 02:07] MED LIST changes: -ACET50TA PO; -ADVI200C5 PO; -MACR100C43 PO; -PRENCHW PO; -PRENTAB55 PO; -ZOFR4TAB3 PO
[2017-06-01 04:38] LABS: BASO % 0.2 % (0.0-1.0); EOS % 0.4 % (0.0-3.0); LARGE UNSTAINED CELL # 0.1 K/mm3 (0.0-0.4); LARGE UNSTAINED CELL % 0.8 % (0.0-4.0); LYMPH # 1.4 K/mm3 (1.5-6.5); LYMPH % 14.2 % (24.0-44.0); MEAN CORPUSCULAR HEMOGLOBIN 31.6 pg (27.0-33.0); MEAN CORPUSCULAR HGB CONC 34.8 g/dl (32.0-36.5); MEAN CORPUSCULAR VOLUME 90.7 fl (80.0-96.0); MONO # 0.4 K/mm3 (0.0-0.8); MONO % 3.8 % (0.0-5.0); NEUTROPHILS # 7.5 K/mm3 (1.8-7.7); NEUTROPHILS % 80.6 % (36.0-66.0); PLATELET COUNT, AUTOMATED 196 k/mm3 (150-450); RED CELL DISTRIBUTION WIDTH 13.6 % (11.5-14.5); WHITE BLOOD COUNT 9.3 K/mm3 (4.0-10.0)
[2017-06-01 05:02] LABS: ALBUMIN 2.8 GM/DL (3.2-5.2); ALBUMIN/GLOBULIN RATIO 0.76 (1.00-1.93); ALKALINE PHOSPHATASE 83 U/L (45-117); ALT/SGPT 17 U/L (12-78); ANION GAP 7 MEQ/L (8-16); AST/SGOT 13 U/L (15-37); BILIRUBIN,TOTAL 0.3 MG/DL (0.2-1.0); BLOOD UREA NITROGEN 6 MG/DL (7-18); CALCIUM LEVEL 8.2 MG/DL (8.5-10.1); CARBON DIOXIDE LEVEL 25 MEQ/L (21-32); CHLORIDE LEVEL 103 MEQ/L (98-107); CREATININE FOR GFR 0.55 MG/DL (0.55-1.02); GLOMERULAR FILTRATION RATE > 60.0 (>60); GLUCOSE, FASTING 117 MG/DL (70-105); POTASSIUM SERUM 3.5 MEQ/L (3.5-5.1); SODIUM LEVEL 135 MEQ/L (136-145); TOTAL PROTEIN 6.5 GM/DL (6.4-8.2)
[2017-06-01] MEDS ORDERED: ONDANSETRON 4 MG TAB (S0181) PO ONE (06:30)
[2017-06-01] MEDS ORDERED: FAMOTIDINE 20 MG TAB PO ONE (06:30)
[2017-06-01 07:30] VITALS: BP 146/79
--- NOTE | 2017-06-01 12:08 | IPNPDOC ---
Text Note Date of Service The patient was seen on 06/01/17 at 0800. NOTE Subjective: Patient reports the brooklynnfran is working for her and she has been able to sip on fluids and sleep. Denies contractions. Reports active movement. Denies leaking of fluid or vaginal bleeding. She does report her abdomen being sore from vomiting. Objective: FHR doppler 145 bpm. VS see below. Reviewed essentially normal labs with patient. Assessment: IUP at 30 6/7 weeks gestation, gastritis, not in labor Plan: Discharge to home. Shahla sent to pharmacy for patient. Reviewed with patient that if abdominal pain gets worse or she is unable to keep fluids down for 24 hours she needs to contact our office. Encouraged BRAT diet. Reviewed the likelihood of this being a viral gastritis, which is self-limiting. Next office appointment 06/08/17. Reviewed access to care, FKC, PTL s/sx, and danger signs to report. Patient verbalized understanding. VS,Fishbone, I+O VS, Fishbone, I+O Laboratory Tests 06/01/17 04:32 Red Blood Count 3.65 L, Mean Corpuscular Volume 90.7, Mean Corpuscular Hemoglobin 31.6, Mean Corpuscular Hemoglobin Concent 34.8, Red Cell Distribution Width 13.6, Neutrophils (%) (Auto) 80.6 H, Lymphocytes (%) (Auto) 14.2 L, Monocytes (%) (Auto) 3.8, Eosinophils (%) (Auto) 0.4, Basophils (%) ( Auto) 0.2, Neutrophils # (Auto) 7.5, Lymphocytes # (Auto) 1.4 L, Monocytes # ( Auto) 0.4, Eosinophils # (Auto) 0.0, Basophils # (Auto) 0.0, Calcium Level 8.2 L , Aspartate Amino Transf (AST/SGOT) 13 L, Alanine Aminotransferase (ALT/SGPT) 17 , Alkaline Phosphatase 83, Total Bilirubin 0.3, Total Protein 6.5, Albumin 2.8 L Vital Signs Date Time Temp Pulse Resp B/P (MAP) Pulse Ox O2 Delivery O2 Flow Rate FiO2 06/01/17 07:30 98.2 75 18 146/79 (101) ABDIAS SANTANA CNM Jun 01, 2017 12:08
== END 2017-06-01 08:35 | disposition home or self-care (01) ==
LOC: M LDO 02:07
PROVIDERS: ATTEND Specialist
DX: O99.89 Other specified diseases and conditions complicating pregnancy, childbirth and the puerperium (principal); Z3A.30 30 weeks gestation of pregnancy; K29.70 Gastritis, unspecified, without bleeding; R11.2 Nausea with vomiting, unspecified; R10.9 Unspecified abdominal pain

== ENCOUNTER → 2017-06-25 | Outpatient (REF) | payer OTHER ==
[~2017-06-25] MED LIST changes: +ACET50TA PO; +ADVI200C5 PO; +MACR100C43 PO; +PRENCHW PO; +PRENTAB55 PO; +ZOFR4TAB3 PO
== END ==
LOC: M LAB REF 18:01
PROVIDERS: ATTEND Obstetrics & Gynecology
DX: Z36 Encounter for antenatal screening of mother (principal); Z3A.00 Weeks of gestation of pregnancy not specified

== ENCOUNTER 2017-07-19 09:41 | Outpatient (CLI) | payer OTHER ==
[~2017-07-19] VITALS: Ht 165.1 cm; Wt 84.0 kg
[~2017-07-19 09:41] MED LIST changes: -ACET50TA PO; -ADVI200C5 PO; -MACR100C43 PO; +NITROFURANTOIN (MACROBID) 100 MG CAP PO SCH; -PRENCHW PO; -PRENTAB55 PO; -ZOFR4TAB3 PO
[2017-07-19] MEDS ORDERED: MACR100C43 PO (12:52)
== END 2017-07-19 13:15 | disposition home or self-care (01) ==
LOC: M LDO 09:41
PROVIDERS: ATTEND Advanced Practice Midwife
DX: O23.43 Unspecified infection of urinary tract in pregnancy, third trimester (principal); Z3A.38 38 weeks gestation of pregnancy

== ENCOUNTER 2017-07-23 15:45 | Inpatient (IN) | payer OTHER ==
[~2017-07-23] VITALS: Ht 165.1 cm; Wt 89.6 kg
[2017-07-23] VITALS (12 sets, daily range): BP systolic 126–156; BP diastolic 70–94
[~2017-07-23 15:45] MED LIST changes: +MACR100C43 PO; -NITROFURANTOIN (MACROBID) 100 MG CAP PO SCH
[2017-07-23] MEDS ORDERED: LR 1,000 ML IV SCH (16:03)
[2017-07-23] MEDS ORDERED: LACTATED RINGER'S 1000 ML IV STA (16:03)
[2017-07-23] MEDS ORDERED: PRENTAB55 PO (16:09)
[2017-07-23 16:41] LABS: MEAN CORPUSCULAR HEMOGLOBIN 32.3 pg (27.0-33.0); MEAN CORPUSCULAR HGB CONC 35.5 g/dl (32.0-36.5); MEAN CORPUSCULAR VOLUME 91.1 fl (80.0-96.0); RED CELL DISTRIBUTION WIDTH 14.7 % (11.5-14.5)
[2017-07-23] MEDS ORDERED: OXYTOCIN 30 UNITS IN 0.9% NaCl 500ML IV BAG (J2590) As Ordered ONE (17:30)
[2017-07-23] MEDS ORDERED: OXYTOCIN DRIP 30 UNITS in APPROPRIATE DILUENT 1 EA IV SCH ×2 (17:30→19:20)
[2017-07-23] MEDS ORDERED: FENTANYL 2MCG/ML ROPIVACAINE 0.2% IN 0.9% NACL 200ML IVBAG As Ordered ONE (17:34)
--- NOTE | 2017-07-23 19:27 | DN ---
DATE OF DELIVERY: 07/23/2017 Tara is a 31-year-old female 6, para 4-1-1-5 who is admitted at 39-2/7 weeks gestation in active labor. She progressed to fully dilated after artificial rupture of membrane, delivered a live female in right occiput anterior position with nuchal cord times one. 9 and 9. weight 8 pounds. Placenta delivered spontaneously intact. Three-vessel cord. Perineum, vagina, cervix inspected. No laceration noted. Estimated blood loss 250 mL. Both mother and baby in stable condition.
[2017-07-23] MEDS ORDERED: ACETAMINOPHEN 500 MG TAB PO PRN (19:30)
[2017-07-23] MEDS ORDERED: RHOGAM 300 MCG (1500 IU) INJ (J2790) IM SCH (19:30)
[2017-07-23] MEDS ORDERED: DOCUSATE SODIUM 100 MG CAP PO PRN (19:30)
[2017-07-23] MEDS ORDERED: MEASLES,MUMPS,RUBELLA VACCINE INJ (MMR-II) (90707) SC SCH (19:30)
[2017-07-23] MEDS ORDERED: IBUPROFEN 800 MG TAB PO PRN (19:30)
[2017-07-23] MEDS ORDERED: METHYLERGONOVINE MALEATE 0.2 MG TAB PO PRN (19:30)
[2017-07-23] MEDS ORDERED: DIBUCAINE 1% OINTMENT 30GM TOP PRN (19:30)
[2017-07-23 19:40] LABS: CORD GAS ABE V -0.2; CORD GAS HCO3 V 23.4 MEQ/L; CORD GAS O2 SAT V 88.3 %; CORD GAS PCO2 V 35.6 mmHg; CORD GAS PH V 7.435 UNITS; CORD GAS PO2 V 41.9 mmHg; CORD GAS TCO2 V 24.5 MEQ/L
[2017-07-23 19:42] LABS: CORD GAS ABE A -1.3; CORD GAS O2 SAT A 51.1 %; CORD GAS PCO2 A 47.6 mmHg; CORD GAS PH A 7.339 UNITS; CORD GAS PO2 A 23.2 mmHg; CORD GAS SBC A 22.1 MEQ/L; CORD GAS TCO2 A 26.5 MEQ/L
--- NOTE | 2017-07-23 20:44 | HPE ---
DATE OF ADMISSION: 07/23/2017 Tara is a 31-year-old female, 6, para 4-1-1-5, with an estimated date of confinement (EDC) of 07/28/2017, estimated gestational age 39-2/7 weeks gestation who presented to the emergency room (ER) for complaints of contractions and increased pelvic pain. Upon evaluation, she was found to be in labor. At this point, a decision was made for admission. Her record reviewed, which was essentially unremarkable. LABORATORIES: Blood type is A negative, Rubella immune, hepatitis negative, HIV negative, GC/chlamydia negative. One-hour sugar testing was within normal limits. Her GBS is negative. Patient did receive RhoGAM at 28 weeks. PAST MEDICAL HISTORY: Denies. PAST SURGICAL HISTORY: Denies. SOCIAL HISTORY: Patient is single. Denies any alcohol or drug use. She is a former smoker. Quit approximately 2 weeks prior to her . MEDICATION: vitamin. ALLERGIES: AMBIEN and FLAGYL. PHYSICAL EXAMINATION: Normal-appearing female in no acute distress. ABDOMEN: Soft, nontender, nondistended. EXTREMITIES: No clubbing, cyanosis, or edema. VAGINAL: 4-5 cm dilated, 70% effaced, fetus at -3 station in vertex position. Tracing reviewed. Category 1 tracing with contractions every 4-5 minutes. ASSESSMENT: 1. Intrauterine at 39-2/7 weeks gestation in labor with intact membrane. 2. Group B streptococcus (GBS) negative. PLAN: Admit to labor and delivery. Routine labs sent. Pain management discussed. Patient opts for an epidural. Will continue on monitor. Anticipate delivery.
[2017-07-24 06:12] VITALS: BP 128/66
[2017-07-24] MEDS: PRENATAL VITAMINS CHEWABLE TABLET PO SCH (11:46)
[2017-07-24 18:00] VITALS: BP 135/85
[2017-07-25 05:55] VITALS: BP 133/77
[2017-07-25] MEDS: PRENATAL VITAMINS CHEWABLE TABLET PO SCH (09:45)
[2017-07-25] MEDS ORDERED: PRENCHW PO (10:10)
[2017-07-25] MEDS ORDERED: ACET50TA PO (10:12)
[2017-07-25] MEDS ORDERED: ADVI200C5 PO (10:13)
[2017-07-29 08:06] LABS: GC Carboxy THC 57 ng/mL (Cutoff=10)
== END 2017-07-25 13:15 | disposition home or self-care (01) | DRG 560 ==
LOC: M LDO 15:45 → M LDI 15:55 → M OBS 22:57
PROVIDERS: ADMIT Obstetrics & Gynecology; ATTEND Obstetrics & Gynecology
PROC: 10E0XZZ Delivery of Products of Conception, External Approach (ICD-10-PCS; principal; 2017-07-23)
PROC: 10907ZC Drainage of Amniotic Fluid, Therapeutic from Products of Conception, Via Natural or Artificial Opening (ICD-10-PCS; 2017-07-23)
PROC: 30233S1 Transfusion of Nonautologous Globulin into Peripheral Vein, Percutaneous Approach (ICD-10-PCS; 2017-07-24)
DX: O80 Encounter for full-term uncomplicated delivery (principal); Z88.8 Allergy status to other drugs, medicaments and biological substances; Z3A.39 39 weeks gestation of pregnancy; Z87.891 Personal history of nicotine dependence; Z79.899 Other long term (current) drug therapy; Z37.0 Single live birth

== ENCOUNTER 2017-08-22 12:21 | Emergency (ER) | payer OTHER ==
[~2017-08-22] VITALS: Ht 165.1 cm; Wt 78.2 kg
[~2017-08-22 12:21] MED LIST changes: +ACET50TA PO; +ADVI200C5 PO; +PRENCHW PO; +PRENTAB55 PO
[2017-08-22] MEDS ORDERED: ONDANSETRON 4 MG ORAL DISINTEGRATING TAB (S0181) PO ONE (14:00)
[2017-08-22] MEDS ORDERED: ACETAMINOPHEN 325 MG TAB PO ONE (14:00)
[2017-08-22] MEDS ORDERED: ZOFR4TAB3 PO (14:20)
[2017-08-22 15:14] VITALS: BP 117/70
== END 2017-08-22 15:16 | disposition home or self-care (01) ==
LOC: M ED 12:21
DX: R11.2 Nausea with vomiting, unspecified (principal); R19.7 Diarrhea, unspecified; J06.9 Acute upper respiratory infection, unspecified

== ENCOUNTER 2017-10-23 07:38 | Day surgery (SDC) | payer OTHER ==
[~2017-10-23] VITALS: Ht 165.1 cm; Wt 78.0 kg
[~2017-10-23 07:38] MED LIST changes: +ZOFR4TAB3 PO
[2017-10-23] MEDS ORDERED: ACETAMINOPHEN 650 MG SUPP PR ONE (08:00)
[2017-10-23] MEDS ORDERED: LR 1,000 ML IV ONE (08:00)
[2017-10-23 08:07] LABS: MEAN CORPUSCULAR HGB CONC 34.2 g/dl (32.0-36.5); MEAN CORPUSCULAR VOLUME 90.7 fl (80.0-96.0); PLATELET COUNT, AUTOMATED 240 10^3/uL (150-450); RED CELL DISTRIBUTION WIDTH 12.7 % (11.5-14.5); WHITE BLOOD COUNT 6.7 10^3/uL (4.0-10.0)
[2017-10-23 08:29] LABS: CONTROL LINE HCG INT CTR LINE PRESENT
[2017-10-23] MEDS ORDERED: ONDANSETRON 4MG/2ML VIAL (J2405) As Ordered ONE (08:35)
[2017-10-23] MEDS ORDERED: MIDAZOLAM INJ 2 MG/2 ML VIAL (J2250) As Ordered ONE (08:35)
[2017-10-23] MEDS ORDERED: dexameTHASONE 4 MG/ML 1ML VIAL (J1100) As Ordered ONE (08:35)
[2017-10-23] MEDS ORDERED: KETOROLAC 60 MG/2 ML VIAL (J1885) As Ordered ONE (08:35)
[2017-10-23] MEDS ORDERED: fentaNYL 100 MCG/2 ML INJECTION (J3010) As Ordered ONE ×2 (08:35→11:58)
[2017-10-23] MEDS ORDERED: PROPOFOL 200 MG/20 ML VIAL As Ordered ONE (08:35)
[2017-10-23] MEDS ORDERED: LIDOCAINE 2% INJ 100 MG/5 ML SDV (FOR ANES.) As Ordered ONE (08:35)
[2017-10-23] MEDS ORDERED: ROCURONIUM BROMIDE 50 MG/5 ML VIAL As Ordered ONE ×2 (08:35→08:59)
[2017-10-23] MEDS ORDERED: HYDROmorphone HCL 2 MG/ML 1ML VIAL (J1170) As Ordered ONE (08:41)
[2017-10-23] MEDS ORDERED: NEOSTIGMINE 10 MG/10 ML VIAL (J2710) As Ordered ONE ×2 (08:45→11:25)
[2017-10-23] MEDS ORDERED: GLYCOPYRROLATE INJ 0.2 MG/ML 2 ML VIAL As Ordered ONE ×2 (08:45→11:26)
[2017-10-23] MEDS ORDERED: BUPIVACAINE/EPIN 0.5% 30 ML VIAL As Ordered ONE (10:28)
[2017-10-23] MEDS ORDERED: ACETAMINOPHEN 650 MG SUPP As Ordered ONE (10:29)
[2017-10-23] MEDS ORDERED: SEVOFLURANE INHAL SOLN 250 ML BTL As Ordered ONE (10:33)
[2017-10-23] MEDS ORDERED: PERC5TAB12 PO (10:35)
[2017-10-23] MEDS ORDERED: PHENYLephrine HCL 500 MCG/5 ML (100MCG/ML) SYRINGE (J2370) As Ordered ONE (11:01)
[2017-10-23] MEDS ORDERED: ePHEDrine SULFATE 25 MG/5 ML(5MG/ML) SYRINGE As Ordered ONE (11:15)
[2017-10-23] MEDS ORDERED: PERCOCET 5MG/325MG TAB As Ordered ONE (11:49)
[2017-10-23] MEDS: PERCOCET 5MG/325MG TAB PO PRN ×2 (12:00→12:31)
[2017-10-23] MEDS: fentaNYL 100 MCG/2 ML INJECTION (J3010) IV PRN ×8 (12:00→12:45)
[2017-10-23] MEDS ORDERED: PERCOCET 5MG/325MG TAB PO PRN (12:15)
[2017-10-23] MEDS ORDERED: ONDANSETRON 4MG/2ML VIAL (J2405) IV PRN (12:15)
[2017-10-23] MEDS ORDERED: LR 1,000 ML IV SCH (12:15)
[2017-10-23 13:55] VITALS: BP 132/86
[2017-10-23] MEDS ORDERED: IBUPROFEN 800 MG TAB PO SCH (15:00)
--- NOTE | 2017-10-26 08:26 | RO ---
DATE OF PROCEDURE: 10/23/2017 PREOPERATIVE DIAGNOSIS: Multiparity, desires permanent tubal sterilization. POSTOPERATIVE DIAGNOSIS: Multiparity, desires permanent tubal sterilization. PROCEDURE: 1. Laparoscopy. 2. Bilateral tubal ligation using Filshie clip SURGEON: Dr. Sheng Euceda DETECTIVE SERGEANT: ANESTHESIA: General. COMPLICATIONS: None. ESTIMATED BLOOD LOSS: Less than 10 mL. Tara is a 32-year-old, multiparous female who desires permanent tubal sterilization. After counseling in the office, a decision was made for laparoscopy and bilateral tubal ligation using Filshie clip. PROCEDURE: After obtaining informed consent the patient was taken to the operating room where general anesthetic was found to be adequate. She was then draped and prepped in the usual sterile fashion in the dorsal lithotomy position. At this point, a ring forceps was placed in the vagina for manipulation. The bladder was emptied to approximately 200 mL of clear urine. We then turned our attention to the abdomen where a 5 mm infraumbilical incision was made. Using the Veress needle, the abdomen was insufflated with CO2 gas to approximately 3.5 liters. We then placed a 5 mm XCEL trocar as well as the laparoscope under direct visualization. An 8 mm right lateral port was placed. The patient was placed in Trendelenburg. Bilateral fallopian tubes identified. A Filshie clip was then applied approximately 2-3 cm away from the cornual area in each tube. Good hemostasis noted. The pelvis copiously irrigated with normal saline and suctioned out. The pelvis inspected. No evidence of any injury or abnormalities noted. At this point, the laparoscope was removed as well as the instrument and the laparoscopic ports were closed using Dermabond. 0.25% Marcaine was placed for postoperative pain. The patient tolerated the procedure well. She was then transferred to recovery room in stable condition.
== END 2017-10-23 13:58 | disposition home or self-care (01) ==
LOC: M SDC 07:38
PROVIDERS: ATTEND Obstetrics & Gynecology
DX: Z30.2 Encounter for sterilization (principal); D64.9 Anemia, unspecified
CPT/HCPCS: 36415; 58671; 84703; 85027; 86850; 86870; 86900; 86901; A4264

== ENCOUNTER 2017-12-27 08:10 | Emergency (ER) | payer OTHER ==
[2017-12-27] MEDS: ONDANSETRON 4MG/2ML VIAL (J2405) IV (08:25)
[2017-12-27] MEDS: MORPHINE 4 MG/ML 1ML VIAL (J2270) IV (08:30)
== END 2017-12-27 09:37 | disposition home or self-care (01) ==
LOC: M ED 08:10
DX: S52.591A Other fractures of lower end of right radius, initial encounter for closed fracture (principal); S52.611A Displaced fracture of right ulna styloid process, initial encounter for closed fracture; W00.0XXA Fall on same level due to ice and snow, initial encounter; Y92.89 Other specified places as the place of occurrence of the external cause
CPT/HCPCS: J2270

== ENCOUNTER 2018-03-25 19:42 | Emergency (ER) | payer SELFPAY, OTHER | END 2018-03-25 20:28 | disposition home or self-care (01) | LOC: M ED 19:42 | DX: J20.9 Acute bronchitis, unspecified (principal); J01.90 Acute sinusitis, unspecified | CPT/HCPCS: 99282 ==

== ENCOUNTER → 2018-05-26 | Outpatient (CLI) | payer OTHER | LOC: M EKG 15:17 | DX: R07.89 Other chest pain (principal) | CPT/HCPCS: 71046 ==

== ENCOUNTER 2019-02-11 17:37 | Emergency (ER) | payer OTHER ==
[~2019-02-11] VITALS: Ht 165.1 cm; Wt 69.1 kg
[~2019-02-11 17:37] MED LIST changes: -ACET50TA PO; +CLAR5TAB7 PO; +HYDR-3715 PO; +IRON27TA2 PO; +MAPA500T2 PO; +PERC5TAB12 PO; +ZITHTAB PO; +ZOFR4TAB14 PO; -ZOFR4TAB3 PO
[2019-02-11 19:22] LABS: INFLUENZA A AMPLIFICATION POSITIVE (NEGATIVE); INFLUENZA B AMPLIFICATION NEGATIVE (NEGATIVE)
[2019-02-11 19:38] VITALS: BP 115/56
[2019-02-11] MEDS ORDERED: OSEL75CA PO (19:51)
== END 2019-02-11 20:06 | disposition home or self-care (01) ==
LOC: M ED 17:37
DX: J09.X9 Influenza due to identified novel influenza A virus with other manifestations (principal)

== ENCOUNTER 2019-07-24 16:36 | Emergency (ER) | payer OTHER ==
[~2019-07-24] VITALS: Ht 165.1 cm; Wt 65.4 kg
[~2019-07-24 16:36] MED LIST changes: +OSEL75CA PO
[2019-07-24 17:19] LABS: BASO % 0.2 % (0.0-1.0); EOS % 0.1 % (0.0-3.0); HEMATOCRIT 36.8 % (36.0-47.0); HEMOGLOBIN 12.4 g/dl (12.0-15.5); LYMPH # 1.5 10^3/uL (1.5-5.0); LYMPH % 11.8 % (24.0-44.0); MEAN CORPUSCULAR HEMOGLOBIN 30.7 pg (27.0-33.0); MEAN CORPUSCULAR HGB CONC 33.7 g/dl (32.0-36.5); MEAN CORPUSCULAR VOLUME 91.1 fl (80.0-96.0); MONO # 0.7 10^3/uL (0.0-0.8); MONO % 5.5 % (0.0-5.0); NEUTROPHILS # 10.7 10^3/uL (1.5-8.5); PLATELET COUNT, AUTOMATED 229 10^3/uL (150-450); RED BLOOD COUNT 4.04 10^6/uL (4.00-5.40)
[2019-07-24 17:29] LABS: INR 1.24; PROTHROMBIN TIME 15.3 SECONDS (11.8-14.0)
[2019-07-24 17:30] LABS: PARTIAL THROMBOPLASTIN TIME 34.5 SECONDS (25.0-38.4)
[2019-07-24 17:34] LABS: INFLUENZA A AMPLIFICATION NEGATIVE (NEGATIVE); INFLUENZA B AMPLIFICATION NEGATIVE (NEGATIVE)
[2019-07-24 17:52] LABS: ALT/SGPT 18 U/L (12-78); BILIRUBIN,DIRECT 0.2 MG/DL (0.0-0.2); BILIRUBIN,TOTAL 0.8 MG/DL (0.2-1.0); BLOOD UREA NITROGEN 15 MG/DL (7-18); CARBON DIOXIDE LEVEL 24 MEQ/L (21-32); CHLORIDE LEVEL 104 MEQ/L (98-107); CK-MB VALUE MASS 1.1 NG/ML (<3.6); CPK CREATINE PHOSPHOKINASE 107 U/L (26-192); CREATININE FOR GFR 0.77 MG/DL (0.55-1.30); FREE T4 1.16 NG/DL (0.76-1.46); GLOMERULAR FILTRATION RATE > 60.0 (>60); GLUCOSE, FASTING 105 MG/DL (70-100); LIPASE 52 U/L (73-393); MB/CK RELATIVE INDEX 1.03 (< OR =4); POTASSIUM SERUM 3.6 MEQ/L (3.5-5.1); SODIUM LEVEL 137 MEQ/L (136-145); THYROID STIMULATING HORMONE 0.638 uIU/ML (0.358-3.740); TOTAL PROTEIN 7.2 GM/DL (6.4-8.2); TROPONIN I < 0.02 NG/ML (< 0.10)
[2019-07-24] MEDS ORDERED: ISOVUE-370 76% 100ML VIAL (Q9967) As Ordered ONE (17:54)
[2019-07-24] MEDS ORDERED: IBUP-1114 PO (18:31)
--- NOTE | 2019-07-24 18:35 | REPVR ---
EXAM: CT Angiography Chest With Contrast EXAM DATE/TIME: 07/24/2019 5:59 PM CLINICAL HISTORY: 33 years old, female; Left-sided chest pain; Additional info: Left sided pleuritic chest pain TECHNIQUE: Imaging protocol: Computed tomographic angiography of the chest with intravenous contrast. 3D rendering: MIP reconstructed images were created and reviewed. Radiation optimization: All CT scans at this facility use at least one of these dose optimization techniques: automated exposure control; mA and/or kV adjustment per patient size (includes targeted exams where dose is matched to clinical indication); or iterative reconstruction. Contrast material: ISOVUE 370; Contrast volume: 75 ml; Contrast route: IV; COMPARISON: CR Chest, 2 view PA, Lat 05/26/2018 3:37 PM FINDINGS: Pulmonary arteries: The main pulmonary artery measures 24 mm. No central pulmonary embolism is identified. Aorta: The ascending thoracic aorta measures 25 mm. Lungs: Mild left lower lobe and lingular infiltrates and atelectasis. There is minimal bronchiectasis in the anterior left lower lobe. There is some mucous plugging in the posterior left lower lobe. There is some motion artifact in left lung base. Pleural space: Unremarkable. No pneumothorax. No pleural effusion. Heart: Unremarkable. No cardiomegaly. No pericardial effusion. Mediastinum: There is soft tissue conforming to the anterior mediastinum consistent with residual thymic tissue. Lymph nodes: Unremarkable. No enlarged lymph nodes. Bones/joints: Unremarkable. No acute fracture. Soft tissues: Unremarkable. IMPRESSION: 1. Left lower lobe and lingular infiltrates and atelectasis with some mucous plugging noted in the posterior left lower lobe consistent with pneumonia. 2. Otherwise negative CTA chest. No central pulmonary embolism is identified. Electronically signed by: Chao Urbano On 07/24/2019 18:35:28 PM
[2019-07-24] MEDS ORDERED: LevoFLOXacin IV 750 MG in IV 1 EA IV ONE (19:00)
[2019-07-24] MEDS ORDERED: LEVO750T13 PO (19:01)
[2019-07-24 20:39] VITALS: BP 115/86
--- NOTE | 2019-07-26 04:25 | ECGEPIP ---
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
== END 2019-07-24 20:42 | disposition home or self-care (01) ==
LOC: M ED 16:36
DX: J18.9 Pneumonia, unspecified organism (principal); R00.0 Tachycardia, unspecified; D64.9 Anemia, unspecified; Z87.891 Personal history of nicotine dependence
CPT/HCPCS: 71275; 80048; 80076; 82550; 82553; 83690; 84439; 84443; 85025; 85610; 85730; 87502; 93005; 93041; 94760; 96365; 99285; J1956; Q9967

== ENCOUNTER 2019-12-06 23:33 | Emergency (ER) | payer OTHER ==
[~2019-12-06] VITALS: Ht 165.1 cm; Wt 71.4 kg
[~2019-12-06 23:33] MED LIST changes: +IBUP-1114 PO; +LEVO750T13 PO
[2019-12-07] MEDS ORDERED: METOCLOPRAMIDE INJ 10MG/2ML VIAL (J2765) IV ONE (00:15)
[2019-12-07] MEDS ORDERED: NS 1,000 ML IV ONE (00:15)
[2019-12-07] MEDS ORDERED: MORPHINE 4 MG/ML 1ML VIAL/SYRINGE (J2270) IV ONE (00:15)
[2019-12-07 00:34] LABS: BASO % 0.4 % (0.0-1.0); EOS # 0.1 10^3/uL (0.0-0.5); EOS % 1.5 % (0.0-3.0); HEMATOCRIT 37.5 % (36.0-47.0); HEMOGLOBIN 12.1 g/dl (12.0-15.5); LYMPH % 22.4 % (24.0-44.0); MEAN CORPUSCULAR HEMOGLOBIN 30.4 pg (27.0-33.0); MEAN CORPUSCULAR HGB CONC 32.3 g/dl (32.0-36.5); MEAN CORPUSCULAR VOLUME 94.2 fl (80.0-96.0); MONO # 0.5 10^3/uL (0.0-0.8); NEUTROPHILS # 6.2 10^3/uL (1.5-8.5); NEUTROPHILS % 69.5 % (36.0-66.0); PLATELET COUNT, AUTOMATED 205 10^3/uL (150-450); RED BLOOD COUNT 3.98 10^6/uL (4.00-5.40); WHITE BLOOD COUNT 8.9 10^3/uL (4.0-10.0)
[2019-12-07 00:38] LABS: AMORPHOUS SEDIMENT SMALL (NEGATIVE); APPEARANCE, URINE HAZY (CLEAR); BACTERIA, URINE AUTO NEGATIVE (NEGATIVE); BILIRUBIN, URINE AUTO NEGATIVE (NEGATIVE); BLOOD, URINE BLOOD NEGATIVE (NEGATIVE); COLOR, URINE STRAW (YELLOW); GLUCOSE, URINE (UA) AUTO NEGATIVE (NEGATIVE); KETONE, URINE AUTO NEGATIVE (NEGATIVE); LEUKOCYTE ESTERASE, URINE AUTO NEGATIVE (NEGATIVE); MUCUS, URINE SMALL (NEGATIVE); NITRITE, URINE AUTO NEGATIVE (NEGATIVE); PROTEIN, URINE AUTO NEGATIVE (NEGATIVE); RBC, URINE AUTO 1 /HPF (0-3); SPECIFIC GRAVITY URINE AUTO 1.005 (1.002-1.035); SQUAMOUS EPITHELIAL CELL UR AU 0 /HPF (0-6); UROBILINOGEN, URINE AUTO 0.2 mg/dL (0.0-2.0); WBC, URINE AUTO 2 /HPF (0-3)
[2019-12-07 01:32] LABS: ALBUMIN 3.8 GM/DL (3.2-5.2); ALT/SGPT 49 U/L (12-78); BILIRUBIN,DIRECT 0.3 MG/DL (0.0-0.2); BILIRUBIN,TOTAL 0.6 MG/DL (0.2-1.0); BLOOD UREA NITROGEN 11 MG/DL (7-18); CALCIUM LEVEL 8.7 MG/DL (8.5-10.1); CARBON DIOXIDE LEVEL 26 MEQ/L (21-32); CHLORIDE LEVEL 109 MEQ/L (98-107); CREATININE FOR GFR 0.74 MG/DL (0.55-1.30); GLOMERULAR FILTRATION RATE > 60.0 (>60); GLUCOSE, FASTING 117 MG/DL (70-100); LIPASE 104 U/L (73-393); POTASSIUM SERUM 4.1 MEQ/L (3.5-5.1); SODIUM LEVEL 138 MEQ/L (136-145); TOTAL PROTEIN 6.6 GM/DL (6.4-8.2)
[2019-12-07 01:41] LABS: HCG, SERUM QUALITATIVE NEGATIVE (NEGATIVE)
--- NOTE | 2019-12-07 03:18 | REPVR ---
PROCEDURE INFORMATION: Exam: US Abdomen Limited, Right Upper Quadrant Exam date and time: 12/07/2019 2:33 AM Age: 34 years old Clinical indication: Abdominal pain; Acute; Additional info: Biliary/gb eval TECHNIQUE: Imaging protocol: Real-time ultrasound of the abdomen with image documentation. Examination was focused on the right upper quadrant. COMPARISON: No relevant prior studies available. FINDINGS: Liver: Normal. No masses. Gallbladder: Multiple mobile stones and sludge in the gallbladder. Largest stone measures 2.0 cm. No gallbladder wall thickening or pericholecystic fluid. Common bile duct: No biliary duct dilation. Pancreas: Visualized pancreas is unremarkable. Right kidney: Normal. No mass. No hydronephrosis. IMPRESSION: Multiple gallbladder stones. No signs of cholecystitis or biliary duct dilation. Electronically signed by: Rubio Boles On 12/07/2019 03:18:07 AM
[2019-12-07 04:26] VITALS: BP 138/67
== END 2019-12-07 04:40 | disposition home or self-care (01) ==
LOC: M ED 23:33
DX: K80.20 Calculus of gallbladder without cholecystitis without obstruction (principal)
CPT/HCPCS: 76705; 80048; 80076; 81001; 83690; 84703; 85025; 87086; 96374; 96375; 99284; J2270; J2765

== ENCOUNTER 2020-01-17 07:17 | Day surgery (SDC) | payer OTHER ==
[~2020-01-17] VITALS: Ht 165.1 cm; Wt 70.9 kg
[~2020-01-17 07:17] MED LIST changes: +BUPIVACAINE/EPIN 0.25% 30 ML VIAL As Ordered ONE; +LR 1,000 ML IV ONE; +MULTCAP PO; +ceFAZolin SOD 1 GM in D5W MINI-BAG PLUS 50 ML IV ONE
[2020-01-17] MEDS ORDERED: ONDANSETRON 4MG/2ML VIAL (J2405) As Ordered ONE (08:14)
[2020-01-17] MEDS ORDERED: MIDAZOLAM INJ 2 MG/2 ML VIAL (J2250) As Ordered ONE (08:14)
[2020-01-17] MEDS ORDERED: ROCURONIUM BROMIDE 50 MG/5 ML VIAL As Ordered ONE (08:14)
[2020-01-17] MEDS ORDERED: dexameTHASONE 4 MG/ML 1ML VIAL (J1100) As Ordered ONE (08:14)
[2020-01-17] MEDS ORDERED: propofoL 200 MG/20 ML VIAL As Ordered ONE (08:14)
[2020-01-17] MEDS ORDERED: fentaNYL 100 MCG/2 ML INJECTION (J3010) As Ordered ONE ×3 (08:14→10:20)
[2020-01-17] MEDS ORDERED: LIDOCAINE 2% INJ 100 MG/5 ML SDV (FOR ANES.) As Ordered ONE (08:14)
[2020-01-17] MEDS ORDERED: SUGAMMADEX SODIUM 500 MG/5 ML VIAL (BRIDION) As Ordered ONE (09:24)
[2020-01-17] MEDS ORDERED: KETOROLAC 60 MG/2 ML VIAL (J1885) As Ordered ONE (09:25)
[2020-01-17] MEDS ORDERED: ESMOLOL INJ 100MG/10ML VIAL As Ordered ONE (09:40)
--- NOTE | 2020-01-17 10:28 | RO ---
DATE OF SERVICE: 01/17/2020 PREOPERATIVE DIAGNOSIS: Symptomatic gallstones. POSTOPERATIVE DIAGNOSIS: Symptomatic gallstones. PROCEDURE: Laparoscopic cholecystectomy. SURGEON: Vic Solorzano. ANESTHESIA: General endotracheal anesthesia. ESTIMATED BLOOD LOSS: Minimal. FLUIDS: Crystalloid. DESCRIPTION OF PROCEDURE: The patient was taken to the operating room and was given general anesthesia. After adequate anesthesia and preoperative antibiotics were given, the patient was prepped and draped in the usual sterile fashion. An infraumbilical incision was made with skin knife. Blunt dissection was carried down to fascia. Veress needle placed into the abdominal cavity, insufflated to 15 mm of pressure. Dilating 10 mm trocar was placed at this time and under direct visualization an epigastric and two lateral trocars were placed. Gallbladder was grasped, retracted superiorly and then the neck of the gallbladder was cleared of peritoneum circumferentially and the cystic artery was also nicely seen. However, It did parallel the neck of the gallbladder and then eventually went on to the gallbladder itself. This was followed for a substantial length taking care to make sure that if this was replaced right hepatic that this would not be clipped. In any case after obtaining the critical view of safety, once the gallbladder was dissected nicely up onto the gallbladder bed and a good window was created behind the neck of the gallbladder, the cystic duct was further isolated and clipped proximally, distally and transected. The cystic artery was then clipped as it went onto the gallbladder itself and the gallbladder was taken from the gallbladder bed using electrocautery. This was placed in an EndoCatch bag and brought out through the umbilicus. 0 Vicryl was used close the fascia at the umbilicus and #4-0 Vicryl was used to close all incisions. Steri-Strips and a dry sterile dressing was applied. The patient was awakened, extubated, brought to recovery room awake, alert, hemodynamically stable. Sponge and needle counts correct times two.
[2020-01-17] MEDS ORDERED: LR 1,000 ML IV SCH ×2 (10:45→11:30)
[2020-01-17] MEDS ORDERED: PERCOCET 5MG/325MG TAB PO PRN (10:45)
[2020-01-17] MEDS ORDERED: ONDANSETRON 4MG/2ML VIAL (J2405) IV PRN ×2 (10:45→11:30)
[2020-01-17] MEDS: fentaNYL 100 MCG/2 ML INJECTION (J3010) IV PRN ×3 (10:52→11:03)
[2020-01-17] MEDS ORDERED: NORCO, ANEXSIA 5/325MG TABLET (HYDROcodone/ACETAMINOPHEN) PO PRN (11:30)
[2020-01-17 12:34] VITALS: BP 129/67
[2020-01-17] MEDS ORDERED: KETOROLAC 30 MG/ML VIAL (J1885) IV SCH (16:00)
== END 2020-01-17 12:37 | disposition home or self-care (01) ==
LOC: M SDC 07:17
PROVIDERS: ATTEND Surgery
DX: K80.10 Calculus of gallbladder with chronic cholecystitis without obstruction (principal); D64.9 Anemia, unspecified; F17.210 Nicotine dependence, cigarettes, uncomplicated; Z79.899 Other long term (current) drug therapy
CPT/HCPCS: 47562; 88304; J0690; J1100; J1885; J2250; J2405; J3010

== ENCOUNTER 2020-06-07 15:47 | Emergency (ER) | payer OTHER ==
[~2020-06-07 15:47] MED LIST changes: -BUPIVACAINE/EPIN 0.25% 30 ML VIAL As Ordered ONE; -LR 1,000 ML IV ONE; -ceFAZolin SOD 1 GM in D5W MINI-BAG PLUS 50 ML IV ONE
[2020-06-07] MEDS ORDERED: NORCO, ANEXSIA 5/325MG TABLET (HYDROcodone/ACETAMINOPHEN) ONE (18:37)
[2020-06-07] MEDS ORDERED: NORCO, ANEXSIA 5/325MG TABLET (HYDROcodone/ACETAMINOPHEN) As Ordered ONE (18:37)
[2020-06-07] MEDS ORDERED: DOXYCYCLINE HYCLATE 100MG TABLET ONE (18:37)
[2020-06-07] MEDS ORDERED: DOXYCYCLINE HYCLATE 100MG TABLET As Ordered ONE (18:37)
--- NOTE | 2020-07-27 14:36 | REP ---
PORTABLE CHEST X-RAY HISTORY: Unavailable. This report was delayed due to a protracted network disruption experienced by this facility. FINDINGS: Monitoring electrodes overlie the chest. There is a fairly large infiltrate in the left base consistent with pneumonia. Right lung is clear. Heart is not enlarged. IMPRESSION: Left base infiltrate consistent with pneumonia. Otherwise, no active disease. MTDD
== END 2020-06-07 18:47 | disposition home or self-care (01) ==
LOC: M ED 15:47
DX: J18.9 Pneumonia, unspecified organism (principal)

== ENCOUNTER 2020-08-25 20:19 | Emergency (ER) | payer OTHER ==
[~2020-08-25] VITALS: Ht 165.1 cm; Wt 75.4 kg
[2020-08-25 21:06] LABS: BASO # 0.1 10^3/uL (0.0-0.2); BASO % 0.6 % (0.0-1.0); EOS # 0.3 10^3/uL (0.0-0.5); EOS % 3.2 % (0.0-3.0); HEMATOCRIT 39.7 % (36.0-47.0); HEMOGLOBIN 12.8 g/dl (12.0-15.5); LYMPH % 38.5 % (24.0-44.0); MEAN CORPUSCULAR HEMOGLOBIN 30.3 pg (27.0-33.0); MEAN CORPUSCULAR HGB CONC 32.2 g/dl (32.0-36.5); MEAN CORPUSCULAR VOLUME 94.1 fl (80.0-96.0); MONO # 0.4 10^3/uL (0.0-0.8); MONO % 5.4 % (0.0-5.0); NEUTROPHILS # 4.1 10^3/uL (1.5-8.5); NEUTROPHILS % 52.2 % (36.0-66.0); PLATELET COUNT, AUTOMATED 239 10^3/uL (150-450); RED BLOOD COUNT 4.22 10^6/uL (4.00-5.40); WHITE BLOOD COUNT 7.8 10^3/uL (4.0-10.0)
[2020-08-25 21:39] LABS: ALBUMIN 4.1 GM/DL (3.2-5.2); ALT/SGPT 21 U/L (12-78); BILIRUBIN,DIRECT < 0.1 MG/DL (0.0-0.2); BILIRUBIN,TOTAL 0.3 MG/DL (0.2-1.0); LIPASE 103 U/L (73-393); TOTAL PROTEIN 7.5 GM/DL (6.4-8.2)
--- NOTE | 2020-08-25 22:18 | REPVR ---
PROCEDURE INFORMATION: Exam: CT Abdomen And Pelvis Without Contrast Exam date and time: 08/25/2020 10:01 PM Age: 34 years old Clinical indication: Abdominal pain; Generalized; Additional info: Flank pain, R/O stone TECHNIQUE: Imaging protocol: Computed tomography of the abdomen and pelvis without contrast. Radiation optimization: All CT scans at this facility use at least one of these dose optimization techniques: automated exposure control; mA and/or kV adjustment per patient size (includes targeted exams where dose is matched to clinical indication); or iterative reconstruction. COMPARISON: Abdomen, limited US 12/07/2019 2:22 AM FINDINGS: Lungs: Scarring/atelectasis left lower lobe. Liver: Normal. No mass. Gallbladder and bile ducts: There has been a cholecystectomy. Pancreas: Normal. No ductal dilation. Spleen: Normal. No splenomegaly. Adrenals: Normal. No mass. Kidneys and ureters: 2.4 cm hypoattenuating focus left kidney likely representing a cyst. Ultrasound correlation suggested. Nonobstructive calculi right kidney. No ureteral calculi. Stomach and bowel: Unremarkable. No obstruction. No mucosal thickening. Appendix: No evidence of appendicitis. Intraperitoneal space: Unremarkable. No free air. No significant fluid collection. Vasculature: Unremarkable. No abdominal aortic aneurysm. Lymph nodes: Unremarkable. No enlarged lymph nodes. Urinary bladder: Unremarkable as visualized. Reproductive: Status post tubal ligation. Bones/joints: Mild central spinal stenosis L4-L5. Soft tissues: Small umbilical hernia. Otherwise unremarkable. IMPRESSION: 1. There has been a cholecystectomy. 2. 2.4 cm hypoattenuating focus left kidney likely representing a cyst. Ultrasound correlation suggested. 3. Nonobstructive calculi right kidney. No ureteral calculi. Electronically signed by: Piero Butler On 08/25/2020 22:18:02 PM
[2020-08-25] MEDS ORDERED: KETOROLAC TROMETHAMINE 10 MG TAB PO ONE (22:45)
--- NOTE | 2020-08-25 23:14 | REPVR ---
PROCEDURE INFORMATION: Exam: XR Right Ribs with PA Chest, 3 Views Exam date and time: 08/25/2020 11:06 PM Age: 34 years old Clinical indication: Other: Pain TECHNIQUE: Imaging protocol: XR Right ribs 3 views with PA chest. COMPARISON: CR Chest, 1 view 06/07/2020 6:02 PM FINDINGS: Lungs: Unremarkable. No consolidation. Pleural space: Unremarkable. No pleural effusion. No pneumothorax. Heart/Mediastinum: Unremarkable. No cardiomegaly. Bones/joints: Unremarkable. IMPRESSION: No acute findings. Electronically signed by: Piero Butler On 08/25/2020 23:14:20 PM
[2020-08-25 23:49] VITALS: BP 113/78
--- NOTE | 2020-08-27 11:43 | ED PDOC ---
Post-Departure Follow-Up pt needs fu for ct abd/p formal report. see report. obtain pcp name and fax. if no pcp arrange us follow up as requested and give pt [facility] number and fax Chery Quinteros MD Aug 27, 2020 11:42
== END 2020-08-25 23:55 | disposition home or self-care (01) ==
LOC: M ED 20:19
DX: S23.41XA Sprain of ribs, initial encounter (principal); X58.XXXA Exposure to other specified factors, initial encounter; Y92.89 Other specified places as the place of occurrence of the external cause; Y93.89 Activity, other specified; Y99.8 Other external cause status

== ENCOUNTER 2021-05-07 20:27 | Emergency (ER) | payer OTHER ==
[~2021-05-07] VITALS: Ht 167.6 cm; Wt 68.6 kg
[2021-05-07] MEDS ORDERED: ACET500P3 PO (20:39)
[2021-05-07 21:21] LABS: BASO % 0.3 % (0.0-1.0); EOS # 0.2 10^3/uL (0.0-0.5); EOS % 2.2 % (0.0-3.0); HEMATOCRIT 37.4 % (36.0-47.0); HEMOGLOBIN 12.3 g/dl (12.0-15.5); LYMPH # 2.5 10^3/uL (1.5-5.0); LYMPH % 37.4 % (24.0-44.0); MEAN CORPUSCULAR HEMOGLOBIN 30.9 pg (27.0-33.0); MEAN CORPUSCULAR HGB CONC 32.9 g/dl (32.0-36.5); MONO # 0.4 10^3/uL (0.0-0.8); MONO % 5.3 % (2.0-8.0); NEUTROPHILS # 3.7 10^3/uL (1.5-8.5); NEUTROPHILS % 54.7 % (36.0-66.0); RED BLOOD COUNT 3.98 10^6/uL (4.00-5.40); WHITE BLOOD COUNT 6.8 10^3/uL (4.0-10.0)
[2021-05-07 21:40] LABS: PLATELET COUNT, AUTOMATED 196 10^3/uL (150-450)
[2021-05-07 22:04] LABS: HCG, SERUM QUALITATIVE NEGATIVE (NEGATIVE)
[2021-05-07 22:10] LABS: BLOOD UREA NITROGEN 12 MG/DL (7-18); CALCIUM LEVEL 8.7 MG/DL (8.5-10.1); CARBON DIOXIDE LEVEL 27 MEQ/L (21-32); CHLORIDE LEVEL 107 MEQ/L (98-107); CK-MB VALUE MASS < 1.0 NG/ML (<3.6); CPK CREATINE PHOSPHOKINASE 187 U/L (26-192); CREATININE FOR GFR 0.69 MG/DL (0.55-1.30); GLOMERULAR FILTRATION RATE > 60.0 (>60); GLUCOSE, FASTING 100 MG/DL (70-100); MB/CK RELATIVE INDEX 0.53 (< OR =4); SODIUM LEVEL 140 MEQ/L (136-145); TROPONIN I < 0.02 NG/ML (< 0.10)
[2021-05-07] MEDS ORDERED: KETOROLAC 30 MG/ML 1ML VIAL IV ONE (22:25)
[2021-05-07] MEDS ORDERED: IPRATROPIUM 0.5MG/ALBUTEROL 2.5MG INH SOL UD 3ML (DUONEB) NEB ONE (22:25)
--- NOTE | 2021-05-07 23:22 | REPVR ---
PROCEDURE INFORMATION: Exam: XR Chest Exam date and time: 05/07/21 (10:22pm) Age: 35 years old Clinical indication: Chest pain TECHNIQUE: Imaging protocol: Portable CXR Views: 1 view COMPARISON: Right ribs plain films + CXR of 08/25/20 FINDINGS: Lungs: Unremarkable. No consolidation. Pleural spaces: Unremarkable. No pleural effusions. No pneumothorax. Heart/Mediastinum: Unremarkable. No cardiomegaly. Bones/joints: Unremarkable. IMPRESSION: No acute findings. Lung ocampo remain clear. Electronically signed by: Ayala Kern On 05/07/2021 23:22:29 PM
[2021-05-08 01:00] VITALS: BP 130/63
[2021-05-08] MEDS ORDERED: NAPR-837 PO (01:08)
--- NOTE | 2021-05-09 17:51 | ECGEPIP ---
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
== END 2021-05-08 01:37 | disposition home or self-care (01) ==
LOC: M ED 20:27
DX: R07.89 Other chest pain (principal); J18.9 Pneumonia, unspecified organism
CPT/HCPCS: 71045; 80048; 82550; 82553; 84703; 85025; 93005; 93041; 94760; 96374; 99285; J1885

== ENCOUNTER 2023-06-02 22:44 | Emergency (ER) | payer OTHER ==
[~2023-06-02] VITALS: Ht 167.6 cm; Wt 65.9 kg
[~2023-06-02 22:44] MED LIST changes: +ACET500P3 PO; +LEVO1TAB40 PO; -LEVO750T13 PO; +NAPR-837 PO
[2023-06-02] MEDS: ACETAMINOPHEN TAB 650MG DOSE (2X325MG) PO ONE (23:43)
[2023-06-02 23:53] LABS: HEMOGLOBIN 13.4 g/dl (12.0-15.5); MEAN CORPUSCULAR HEMOGLOBIN 31.2 pg (27.0-33.0); MEAN CORPUSCULAR HGB CONC 35.3 g/dl (32.0-36.5); MEAN CORPUSCULAR VOLUME 88.4 fl (80.0-96.0); PLATELET COUNT, AUTOMATED 185 10^3/uL (150-450); WHITE BLOOD COUNT 15.4 10^3/uL (4.0-10.0)
[2023-06-03 00:12] LABS: ALBUMIN 3.1 G/DL (3.2-5.2); ALKALINE PHOSPHATASE 94 U/L (46-116); ALT/SGPT 10 U/L (7.0-40); AST/SGOT < 8 U/L (<34); BILIRUBIN,DIRECT 0.2 MG/DL (<0.4); BILIRUBIN,TOTAL 0.5 MG/DL (0.3-1.2); BLOOD UREA NITROGEN 14 MG/DL (9-23); CALCIUM LEVEL 9.1 MG/DL (8.5-10.1); CARBON DIOXIDE LEVEL 26 MMOL/L (20-31); CHLORIDE LEVEL 94 MMOL/L (98-107); CREATININE FOR GFR 0.69 MG/DL (0.55-1.30); GLOMERULAR FILTRATION RATE > 60.0 (>60); GLUCOSE, FASTING 150 MG/DL (60-100); POTASSIUM SERUM 3.7 MMOL/L (3.5-5.1); SODIUM LEVEL 130 MMOL/L (136-145); TOTAL PROTEIN 6.9 G/DL (5.7-8.2)
[2023-06-03 00:21] LABS: LYMPHOCYTES 3 % (16-44); MONOCYTES 10 % (0-5); NEUTROPHILS 78 % (28-66); PLATELET ESTIMATE NORMAL (NORMAL)
[2023-06-03 00:24] LABS: PROCALCITONIN 0.41 ng/ml
[2023-06-03 00:25] LABS: AMYLASE < 20 U/L (30-118)
[2023-06-03 01:41] LABS: HCG, SERUM QUALITATIVE NEGATIVE (NEGATIVE)
[2023-06-03] MEDS: cefTRIAXone SOD 1 GM in D5W MINI-BAG PLUS 50 ML IV ONE (02:04)
[2023-06-03] MEDS: NS 1,000 ML IV ONE ×2 (02:04→02:42)
[2023-06-03] MEDS: KETOROLAC 30 MG/ML 1ML VIAL IV ONE (02:04)
[2023-06-03] MEDS ORDERED: ONDA4TAB6 PO (04:45)
[2023-06-03] MEDS ORDERED: CEFP200T PO (04:45)
[2023-06-03 05:15] VITALS: BP 96/58; TEMP 98; O2SAT 99
== END 2023-06-03 05:30 | disposition home or self-care (01) ==
LOC: M ED 22:44
DX: N10 Acute pyelonephritis (principal)
CPT/HCPCS: 74176; 80048; 80076; 81001; 82150; 83605; 84145; 84703; 85025; 86140; 87040; 87077; 87088; 87186; 87635; 96374; 96375; 99284; J0696; J1885

== ENCOUNTER 2023-11-11 18:36 | Emergency (ER) | payer OTHER, SELFPAY ==
[~2023-11-11] VITALS: Ht 167.6 cm; Wt 55.5 kg
[~2023-11-11 18:36] MED LIST changes: +CEFP200T PO; +ONDA4TAB6 PO
[2023-11-11 18:37] VITALS: BP 129/66; TEMP 100.6; O2SAT 96
[2023-11-11 20:52] LABS: RSV AMPLIFICATION NEGATIVE (NEGATIVE)
== END 2023-11-11 21:46 | disposition left against medical advice (07) ==
LOC: M ED 18:36
DX: Z53.21 Procedure and treatment not carried out due to patient leaving prior to being seen by health care provider (principal)

== ENCOUNTER 2023-11-14 03:57 | Emergency (ER) | payer OTHER ==
[~2023-11-14] VITALS: Ht 167.6 cm; Wt 54.4 kg
[2023-11-14] MEDS ORDERED: ALBUTEROL 90 MCG/ACT 8GM HFA INHALER INH ONE (08:20)
[2023-11-14] MEDS ORDERED: CEFDINIR 300 MG CAP (OMNICEF) PO ONE (09:25)
[2023-11-14] MEDS ORDERED: DOXYCYCLINE HYCLATE 100MG TABLET PO ONE (09:25)
[2023-11-14] MEDS ORDERED: MUCI600T31 PO (09:28)
[2023-11-14] MEDS ORDERED: DOXY-443 PO (09:28)
[2023-11-14] MEDS ORDERED: VENTAER INH (09:28)
[2023-11-14] MEDS ORDERED: CEFD1CAP9 PO (09:28)
[2023-11-14 09:46] VITALS: BP 125/59; TEMP 98.5; O2SAT 98
== END 2023-11-14 09:47 | disposition home or self-care (01) ==
LOC: M ED 03:57
DX: J18.9 Pneumonia, unspecified organism (principal); Z88.8 Allergy status to other drugs, medicaments and biological substances

== ENCOUNTER 2024-01-26 20:02 | Emergency (ER) | payer OTHER ==
[~2024-01-26] VITALS: Ht 165.1 cm; Wt 60.5 kg
[~2024-01-26 20:02] MED LIST changes: +CEFD1CAP9 PO; +DOXY-443 PO; +MUCI600T31 PO; +VENTAER INH
[2024-01-27] MEDS: ONDANSETRON 4MG ORAL DISINTEGRATING TAB PO ONE (00:17)
[2024-01-27] MEDS ORDERED: ONDA4TAB6 PO (00:55)
[2024-01-27 01:04] VITALS: BP 115/65; TEMP 99.7; O2SAT 100
== END 2024-01-27 01:04 | disposition home or self-care (01) ==
LOC: M ED 20:02
DX: J06.9 Acute upper respiratory infection, unspecified (principal); R11.2 Nausea with vomiting, unspecified; R19.7 Diarrhea, unspecified; F17.200 Nicotine dependence, unspecified, uncomplicated; Z88.1 Allergy status to other antibiotic agents; Z79.2 Long term (current) use of antibiotics; Z79.52 Long term (current) use of systemic steroids; Z79.83 Long term (current) use of bisphosphonates; Z79.899 Other long term (current) drug therapy